=== PATIENT | female | born 1940 | race Caucasian/White ===

== ENCOUNTER 2021-05-31 16:08 | Emergency (ER) | payer MEDICARE, OTHER, SELFPAY ==
[2021-05-31 16:10] VITALS: BP 154/62; PULSE 67; RESP 18; TEMP 36.9; O2SAT 96; BMI 20.9
--- NOTE | 2021-05-31 16:12 | HMH.EDGENADL ---
ED Disposition Clinical Impression: Left shoulder pain Qualifiers: Chronicity: acute Qualified Code(s): M25.512 - Pain in left shoulder Disposition: Home, Self-Care Condition on Discharge: Good Additional Instructions: Ibuprofen/Tylenol as needed for aches and pains. Range of motion exercises and activity as tolerated with your left shoulder. Follow-up with PCP for physical therapy referral and possible local injection. Referrals: Kathleen Vaca [Primary Care Provider] - 3 days Time of Disposition: 16:38 - Critical Care Critical Care Time: No Attestation: On , the high probability of a clinically significant, sudden or life threatening deterioration of the following system(s) required my full and direct attention, intervention and personal management. The time I documented below is in addition to time spent performing reported procedures but includes the following listed in this critical care notation. Medical Decision Making - Medical Records Medical records reviewed: Yes: I reviewed the patient's medical records. - Efe Inquiry Pt receiving controlled substance: No Vital Signs: 05/31/21 16:10 Temperature 98.5 F Temperature Source Oral Pulse Rate [Left Radial] 67 Respiratory Rate 18 Blood Pressure [Right Arm] 154/62 H Blood Pressure Mean [Right Arm] 92 Blood Pressure Source [Right Arm] Automatic Cuff Blood Pressure Position [Right Arm] Sitting 02 Sat by Pulse Oximetry 96 Oxygen Delivery Method Room Air Medical Decision Narrative: 80yo F presents the emergency department as directed by her PCP for left shoulder pain. Patient is in no acute distress initial evaluation. Her physical exam is only remarkable for tenderness to palpate over her coracoid process. Differential diagnosis includes but not limited to: Tendinitis, ruptured biceps tendon, rotator cuff tear, labral tear, OCD of the humeral head. Patient has good range of motion. Occasionally she can reproduce symptoms with abduction of the shoulder and forward rotation. Discussed with the patient no concern that she broke a bone while trying to clean her window and therefore an x-ray would not be beneficial. Patient would likely benefit from a local steroid injection and physical therapy referral. Patient to follow-up with her PCP for treatment and referral. General Adult HPI - General Stated complaint: was raising arm it popped L shoulder Time Seen by Provider: 05/31/21 16:12 Mode of Arrival: Ambulatory - History of Present Illness HPI narrative: 80yo F RHD female presents emergency department on the direction of her PCP secondary to pain in her left shoulder. Patient reports she was washing her kitchen window when she went to raise the screen and had a sudden pop in her left shoulder that caused severe pain. Symptoms have improved upon arrival. She denies any fall. Denies any other trauma. Denies any previous shoulder surgery. Symptoms seem to be worse with abduction of her shoulder. - Related Data Allergies Allergy/AdvReac Type Severity Reaction Status Date / Time clarithromycin [From Biaxin] Allergy Mild TONGUE Unverified 07/18/17 15:00 FEELS STRANGE Clarithromycin Allergy Unknown Uncoded 07/18/17 15:00 From Penicillin V Potassium Allergy Unknown Uncoded 07/18/17 15:00 Penicillin Allergy Unknown Uncoded 07/18/17 15:00 [facility] History - Hepatitis A Screen Drug use history?: No Attestation statement:: This patient has been screened for Hepatitis A risk factors. I have reviewed the patient's past medical history: Yes - Social History Smoking Status: Never smoker ROS Obtained: Yes All systems reviewed & no additional complaints - Musculoskeletal Musculoskeletal: Reports as per HPI Physical Exam - General General appearance: alert, in no apparent distress - Head Head exam: atraumatic - Eye Eye exam: Present: normal appearance - ENT ENT exam: Present: normal exam - Respiratory Respiratory ex
[2021-05-31 16:52] VITALS: BP 132/78; PULSE 78; RESP 16; TEMP 36.6; O2SAT 98
== END 2021-05-31 16:54 | disposition home or self-care (01) ==
PROVIDERS: Emergency Provider Family Medicine; PCP Family Medicine
DX: M25.512 Pain in left shoulder (principal); X50.0XXA Overexertion from strenuous movement or load, initial encounter; Y92.019 Unspecified place in single-family (private) house as the place of occurrence of the external cause; Z88.0 Allergy status to penicillin
CPT/HCPCS: 99282

== ENCOUNTER → 2023-01-23 12:00 | Outpatient (CLI) | payer MEDICARE, OTHER, SELFPAY ==
[2023-01-23 17:45] LABS: Basophils % 0.9 % (0.1-2.0); Eosinophils # 0.1 K/mm3 (0.0-0.4); Eosinophils % 1.3 % (0.1-12.0); Hematocrit 40.1 % (37.0-47.0); Hemoglobin 12.6 g/dL (12.2-16.2); Lymphocytes # 1.3 K/mm3 (0.7-4.5); Lymphocytes % 28.3 % (10-50); Mean Corpuscular HGB Conc 31.4 g/dL (31.8-35.4); Mean Corpuscular Hemoglobin 28.9 pg (27.0-31.2); Mean Corpuscular Volume 92.2 fl (81-99); Mean Platelet Volume 9.2 fl (7.4-10.4); Monocytes # 0.4 K/mm3 (0.1-1.0); Monocytes % 7.8 % (1.7-9.3); Neutrophils # 2.9 K/mm3 (1.8-7.8); Neutrophils % 61.7 % (37.0-80.0); Platelet Count 244 K/mm3 (142-424); Red Blood Count 4.36 M/mm3 (4.20-5.40); Red Cell Distribution Width 13.3 % (11.5-17.5); White Blood Count 4.7 K/mm3 (4.8-10.8)
[2023-01-23 21:28] LABS: Chloride 96 mmol/L (98-107); Potassium 4.7 mmoL/L (3.5-5.1); Sodium 136 mmol/L (136-145)
[2023-01-23 21:31] LABS: Alanine Aminotransferase 22 U/L (12-78); Albumin Level 4.6 g/dl (3.5-5.0); Albumin/Globulin Ratio 1.8 (1.1-1.8); Alkaline Phosphatase 69 U/L (38-126); Anion Gap 14.7 mEq/L (5-15); Aspartate Amino Transferase 32 U/L (14-36); Bilirubin,Total 1.1 mg/dl (0.2-1.3); Blood Urea Nitrogen 13 mg/dl (7-17); Carbon Dioxide 30 mmol/L (22.0-30.0); Cholesterol 197 mg/dl (140-200); Estimated Glomerular Filt Rate 80 ml/min (>60); GFR (African American) 97 ML/MIN (>60); Globulin 2.6 g/dL (1.3-3.2); Total Protein,Serum 7.2 g/dl (6.3-8.2); Triglycerides 58 mg/dl (30-150); VLDL Cholesterol 12 mg/dL (0-40)
[2023-01-23 21:32] LABS: Calcium 9.6 mg/dl (8.4-10.2); Glucose 95 mg/dl (74-100)
[2023-01-23 21:39] LABS: HDL Cholesterol 101 mg/dl (40-60)
[2023-01-23 21:43] LABS: Direct LDL Cholesterol 65.15 mg/dL (100-129)
[2023-01-23 22:03] LABS: Thyroid Stimulating Hormone 0.89 uIU/mL (0.465-4.68)
== END ==
PROVIDERS: PCP Family Medicine; Visit Provider Family Medicine
DX: I10 Essential (primary) hypertension (principal); R01.1 Cardiac murmur, unspecified; Z00.00 Encounter for general adult medical examination without abnormal findings; Z79.899 Other long term (current) drug therapy
CPT/HCPCS: 80053; 80061; 84443; 85025

== ENCOUNTER → 2023-01-30 12:15 | Outpatient (CLI) | payer MEDICARE, OTHER, SELFPAY ==
--- NOTE | 2023-01-30 12:20 | XR_ITS ---
FINAL REPORT CLINICAL HISTORY: rolled left ankle, pain and swelling FINDINGS: LEFT ANKLE SERIES Three views of the left ankle were obtained. There is a nondisplaced fracture at the inferior tip of the lateral malleolus. There is a small tibiotalar joint effusion. There is lateral soft tissue swelling. IMPRESSION: Nondisplaced fracture at the inferior tip of the lateral malleolus. Small tibiotalar joint effusion. Reviewed, Interpreted and Dictated by Thomas Tavares III, MD Transcribed by Isac Solano Authenticated and [facility]
== END ==
PROVIDERS: PCP Family Medicine; Visit Provider Family Medicine
DX: M25.572 Pain in left ankle and joints of left foot; S99.912A Unspecified injury of left ankle, initial encounter
CPT/HCPCS: 73610

== ENCOUNTER 2023-02-02 15:21 | Outpatient (RCR) | payer MEDICARE, OTHER, SELFPAY | END 2023-02-02 16:32 | disposition home or self-care (01) | LOC: PT 15:21 | PROVIDERS: Visit Provider Orthopaedic Surgery | DX: S82.62XA Displaced fracture of lateral malleolus of left fibula, initial encounter for closed fracture (principal) | CPT/HCPCS: 97760 ==

== ENCOUNTER → 2023-02-23 12:35 | Outpatient (CLI) | payer MEDICARE, OTHER, SELFPAY ==
--- NOTE | 2023-02-23 12:42 | XR_ITS ---
FINAL REPORT CLINICAL HISTORY: lt ankle fx COMPARISON: 01/30/2023 FINDINGS: Three views show redemonstration of transverse fracture of the lateral malleolus. No evidence of fracture healing at this time. Displacement is stable. There is no widening of the ankle mortise. The joint spaces appear normal. IMPRESSION: Stable lateral malleolus fracture without evidence of healing at this time. Reviewed, Interpreted and Dictated by Ryley Mendenhall MD Transcribed by Crystal Pierre Authenticated and [facility]
== END ==
PROVIDERS: PCP Family Medicine; Visit Provider Orthopaedic Surgery
DX: S82.62XA Displaced fracture of lateral malleolus of left fibula, initial encounter for closed fracture (principal); M25.572 Pain in left ankle and joints of left foot
CPT/HCPCS: 73610

== ENCOUNTER → 2023-03-23 09:14 | Outpatient (CLI) | payer MEDICARE, OTHER, SELFPAY ==
--- NOTE | 2023-03-23 09:21 | XR_ITS ---
FINAL REPORT CLINICAL HISTORY: lt ankle pain, follow-up fracture COMPARISON: 02/23/2023 FINDINGS: LEFT ANKLE Three views demonstrate ossific density inferior to the lateral malleolus probably related to old avulsion fracture. No callus formation is seen at this location. The mortise is intact. The visualized joint spaces are normally aligned. The soft tissues are unremarkable. IMPRESSION: Redemonstration of fragment inferior to the lateral malleolus. Reviewed, Interpreted and Dictated by Waqar Peoples MD Transcribed by Crystal Pierre Authenticated and [facility]
== END ==
PROVIDERS: PCP Family Medicine; Visit Provider Orthopaedic Surgery
DX: M25.572 Pain in left ankle and joints of left foot (principal); S99.912A Unspecified injury of left ankle, initial encounter
CPT/HCPCS: 73610

== ENCOUNTER → 2023-07-06 16:37 | Outpatient (CLI) | payer MEDICARE, OTHER, SELFPAY ==
[2023-07-06 16:45] LABS: Alanine Aminotransferase 21 U/L (12-78); Albumin Level 4.4 g/dl (3.5-5.0); Albumin/Globulin Ratio 1.7 (1.1-1.8); Alkaline Phosphatase 66 U/L (38-126); Anion Gap 10.4 mEq/L (5-15); Aspartate Amino Transferase 38 U/L (14-36); Bilirubin,Total 0.8 mg/dl (0.2-1.3); Blood Urea Nitrogen 10 mg/dl (7-17); Calcium 9.1 mg/dl (8.4-10.2); Carbon Dioxide 30 mmol/L (22.0-30.0); Chloride 100 mmol/L (98-107); Chol/HDL Ratio 1.7 (1-3.5); Cholesterol 186 mg/dl (140-200); Estimated Glomerular Filt Rate 80 ml/min (>60); GFR (African American) 97 ML/MIN (>60); Globulin 2.6 g/dL (1.3-3.2); Glucose 96 mg/dl (74-100); HDL Cholesterol 107 mg/dl (40-60); Potassium 4.4 mmoL/L (3.5-5.1); Sodium 136 mmol/L (136-145); Triglycerides 65 mg/dl (30-150); VLDL Cholesterol 13 mg/dL (0-40)
[2023-07-06 16:48] LABS: Basophils % 0.3 % (0.1-2.0); Eosinophils # 0.1 K/mm3 (0.0-0.4); Eosinophils % 2.1 % (0.1-12.0); Hematocrit 38.9 % (37.0-47.0); Hemoglobin 12.5 g/dL (12.2-16.2); Lymphocytes # 1.6 K/mm3 (0.7-4.5); Lymphocytes % 33.5 % (10-50); Mean Corpuscular HGB Conc 32.1 g/dL (31.8-35.4); Mean Corpuscular Hemoglobin 30.9 pg (27.0-31.2); Mean Corpuscular Volume 96.3 fl (81-99); Mean Platelet Volume 8.9 fl (7.4-10.4); Monocytes # 0.3 K/mm3 (0.1-1.0); Monocytes % 7.2 % (1.7-9.3); Neutrophils # 2.7 K/mm3 (1.8-7.8); Neutrophils % 56.8 % (37.0-80.0); Platelet Count 228 K/mm3 (142-424); Red Blood Count 4.04 M/mm3 (4.20-5.40); Red Cell Distribution Width 13.2 % (11.5-17.5); White Blood Count 4.8 K/mm3 (4.8-10.8)
[2023-07-06 16:56] LABS: Direct LDL Cholesterol 68.06 mg/dL (100-129)
== END ==
PROVIDERS: PCP Family Medicine; Visit Provider Family Medicine
DX: I10 Essential (primary) hypertension (principal); Z79.899 Other long term (current) drug therapy
CPT/HCPCS: 80053; 80061; 84443; 85025

== ENCOUNTER 2023-10-25 18:56 | Outpatient (CLI) | payer MEDICARE, OTHER, SELFPAY | END 2023-10-25 23:59 | PROVIDERS: PCP Family Medicine; Visit Provider Family Medicine | DX: R39.9 Unspecified symptoms and signs involving the genitourinary system (principal); B96.4 Proteus (mirabilis) (morganii) as the cause of diseases classified elsewhere | CPT/HCPCS: 87086 ==

== ENCOUNTER 2024-01-17 09:05 | Outpatient (CLI) | payer MEDICARE, OTHER, SELFPAY ==
[2024-01-17 16:48] LABS: Basophils # 0.1 K/mm3 (0-0.2); Basophils % 1.2 % (0.1-2.0); Eosinophils # 0.1 K/mm3 (0.0-0.4); Eosinophils % 2.2 % (0.1-12.0); Hematocrit 38.2 % (37.0-47.0); Hemoglobin 12.1 g/dL (12.2-16.2); Lymphocytes # 1.5 K/mm3 (0.7-4.5); Lymphocytes % 32.4 % (10-50); Mean Corpuscular HGB Conc 31.6 g/dL (31.8-35.4); Mean Corpuscular Hemoglobin 30.1 pg (27.0-31.2); Mean Corpuscular Volume 95.3 fl (81-99); Mean Platelet Volume 9.2 fl (7.4-10.4); Monocytes # 0.4 K/mm3 (0.1-1.0); Monocytes % 8.7 % (1.7-9.3); Neutrophils # 2.5 K/mm3 (1.8-7.8); Neutrophils % 55.6 % (37.0-80.0); Platelet Count 259 K/mm3 (142-424); Red Blood Count 4.01 M/mm3 (4.20-5.40); Red Cell Distribution Width 13.2 % (11.5-17.5); White Blood Count 4.5 K/mm3 (4.8-10.8)
[2024-01-17 17:18] LABS: Alanine Aminotransferase 16 U/L (12-78); Albumin Level 4.4 g/dl (3.5-5.0); Albumin/Globulin Ratio 1.7 (1.1-1.8); Alkaline Phosphatase 64 U/L (38-126); Aspartate Amino Transferase 27 U/L (14-36); Bilirubin,Total 1.1 mg/dl (0.2-1.3); Blood Urea Nitrogen 11 mg/dl (7-17); Calcium 9.7 mg/dl (8.4-10.2); Carbon Dioxide 29 mmol/L (22.0-30.0); Chloride 99 mmol/L (98-107); Chol/HDL Ratio 2.3 (1-3.5); Cholesterol 216 mg/dl (140-200); Estimated Glomerular Filt Rate 69 ml/min (>60); GFR (African American) 83 ML/MIN (>60); Globulin 2.6 g/dL (1.3-3.2); Glucose 92 mg/dl (74-100); HDL Cholesterol 95 mg/dl (40-60); Sodium 137 mmol/L (136-145); Triglycerides 64 mg/dl (30-150); VLDL Cholesterol 13 mg/dL (0-40)
[2024-01-17 17:29] LABS: Direct LDL Cholesterol 84.08 mg/dL (100-129)
[2024-01-17 17:47] LABS: Thyroid Stimulating Hormone 1.23 uIU/mL (0.465-4.68)
== END 2024-01-17 23:59 | disposition home or self-care (01) ==
LOC: LAB.DROPOF 01-18 10:12
PROVIDERS: PCP Family Medicine; Visit Provider Family Medicine
DX: E78.5 Hyperlipidemia, unspecified (principal); I10 Essential (primary) hypertension
CPT/HCPCS: 80053; 80061; 84443; 85025

== ENCOUNTER 2024-04-19 16:34 | Outpatient (CLI) | payer MEDICARE, OTHER, SELFPAY | END 2024-04-19 23:59 | disposition home or self-care (01) | LOC: LAB.DROPOF 16:35 | PROVIDERS: PCP Nurse Practitioner Family; Visit Provider Nurse Practitioner Family | DX: R39.9 Unspecified symptoms and signs involving the genitourinary system (principal); N39.0 Urinary tract infection, site not specified | CPT/HCPCS: 87086 ==

== ENCOUNTER 2024-07-05 10:24 | Outpatient (CLI) | payer MEDICARE, OTHER, SELFPAY | END 2024-07-05 23:59 | disposition home or self-care (01) | LOC: LAB.DROPOF 07-07 09:31 | PROVIDERS: PCP Family Medicine; Visit Provider Family Medicine | DX: R39.9 Unspecified symptoms and signs involving the genitourinary system (principal) | CPT/HCPCS: 87086; 87088; 87186 ==

== ENCOUNTER 2024-07-22 09:53 | Outpatient (CLI) | payer MEDICARE, OTHER, SELFPAY ==
[2024-07-22 16:50] LABS: White Blood Count 8.8 K/mm3 (4.8-10.8)
[2024-07-22 16:51] LABS: Basophils # 0.1 K/mm3 (0-0.2); Basophils % 0.7 % (0.1-2.0); Eosinophils # 0.2 K/mm3 (0.0-0.4); Eosinophils % 2.5 % (0.1-12.0); Hematocrit 35.4 % (37.0-47.0); Hemoglobin 10.9 g/dL (12.2-16.2); Lymphocytes % 10.8 % (10-50); Mean Corpuscular HGB Conc 30.8 g/dL (31.8-35.4); Mean Corpuscular Hemoglobin 28.7 pg (27.0-31.2); Mean Corpuscular Volume 93.2 fl (81-99); Mean Platelet Volume 9.8 fl (7.4-10.4); Monocytes # 0.9 K/mm3 (0.1-1.0); Neutrophils # 6.7 K/mm3 (1.8-7.8); Neutrophils % 75.9 % (37.0-80.0); Platelet Count 338 K/mm3 (142-424); Red Cell Distribution Width 14.2 % (11.5-17.5)
[2024-07-22 17:08] LABS: Alanine Aminotransferase 22 U/L (12-78); Albumin Level 4.7 g/dl (3.5-5.0); Alkaline Phosphatase 95 U/L (38-126); Anion Gap 14.2 mEq/L (5-15); Aspartate Amino Transferase 39 U/L (14-36); Bilirubin,Total 0.8 mg/dl (0.2-1.3); Blood Urea Nitrogen 16 mg/dl (7-17); Calcium 10.1 mg/dl (8.4-10.2); Carbon Dioxide 29 mmol/L (22.0-30.0); Chloride 97 mmol/L (98-107); Cholesterol 200 mg/dl (140-200); Estimated Glomerular Filt Rate 80 ml/min (>60); GFR (African American) 96 ML/MIN (>60); Globulin 2.3 g/dL (1.3-3.2); Glucose 84 mg/dl (74-100); Potassium 5.2 mmoL/L (3.5-5.1); Sodium 135 mmol/L (136-145); Triglycerides 40 mg/dl (30-150); VLDL Cholesterol 8 mg/dL (0-40)
[2024-07-22 17:15] LABS: HDL Cholesterol 98 mg/dl (40-60)
[2024-07-22 17:18] LABS: Direct LDL Cholesterol 77.27 mg/dL (100-129)
[2024-07-22 18:35] LABS: HIV Combo NEGATIVE (Negative)
[2024-07-23 08:12] LABS: HCV Ab Non Reactive (Non Reactive)
== END 2024-07-22 23:59 | disposition home or self-care (01) ==
LOC: LAB.DROPOF 07-23 09:54
PROVIDERS: PCP Family Medicine; Visit Provider Family Medicine
DX: Z11.4 Encounter for screening for human immunodeficiency virus [HIV] (principal); Z11.59 Encounter for screening for other viral diseases; I10 Essential (primary) hypertension; E78.5 Hyperlipidemia, unspecified
CPT/HCPCS: 80053; 80061; 85025; 86803; 87389

== ENCOUNTER 2024-08-16 08:54 | Outpatient (CLI) | payer MEDICARE, OTHER, SELFPAY | END 2024-08-16 23:59 | disposition home or self-care (01) | LOC: LAB.DROPOF 08-19 08:54 | PROVIDERS: PCP Nurse Practitioner Family; Visit Provider Nurse Practitioner Family | DX: R39.9 Unspecified symptoms and signs involving the genitourinary system (principal) | CPT/HCPCS: 87086 ==

== ENCOUNTER 2025-01-07 08:30 | Outpatient (CLI) | payer MEDICARE, OTHER, SELFPAY ==
--- OUTSIDE RECORDS SUMMARY | 2024-11-14 07:17 | XMS_ITS | Encounter Summary ---
Author Organization [facility] [employer] Address [address] [place] [address] Care Team Providers Care Gold Plater Name Role Phone Ronald Ghotra MD Primary Care Provider [phone] Reason for Visit * Auth/Cert (Routine) Specialty Diagnoses / Procedures Referred By Contac t Referred To Contact Diagnoses Combined forms of age-related cataract of left eye SEE PRIMARY DX Procedures CT XCAPSL CTRC RMVL INSJ IO LENS PROSTH W/O ECP EXTRACTION, CATARACT, WITH IOL INSERTION Roslyn Stone MD [email or web address] [place] [address] Phone: tel: fax: Referral ID Status Reason Start Date Expiration Date Visits Re quested Visits Authorized [id number] 10/28/2024 1 1 Encounter Details Date Type Department Care Team (Late st Contact Info) Description 11/14/2024 7:17 AM EDT - 11/14/2024 9:11 AM EDT Hospital Encounter [facility] Operating Room [address] [place] [phone] Roslyn Stone MD [address] [place] [address] Discharge Disposition: Home or Self Care Social History Tobacco Use Types Packs/Day Years Used Date Smoking Tobacco: Never Smokeless Tobacco: Never Tobacco Cessation:Counseling Given: Not Answered Alcohol Use Standard Drinks/Week Comments Never 0 (1 standard drink = 0.6 oz pur e alcohol) Comments No Sex and Gender Information Value Date Recorded Sex Assigned at Not on file Legal Sex Female 7:15 PM CDT Gender Identity Not on file Sexual Orientation Not on file documented as of this encounter Last Filed Vital Signs Vital Sign Reading Time Taken Comments Blood Pressure 134/84 11/14/2024 9:09 AM EDT Pulse 66 11/14/2024 9:09 AM EDT Temperature 36.5 C (97.7 F) 11/14/2024 9:09 AM EDT Respiratory Rate 12 11/14/2024 9:09 AM EDT Oxygen Saturation 99% 11/14/2024 9:09 AM EDT Inhaled Oxygen Concentration - - Weight 52.2 kg (115 lb) 11/14/2024 7:57 AM EDT Height 167.6 cm (5' 6 ) 11/14/2024 7:57 AM EDT Body Mass Index 18.56 11/14/2024 7:57 AM EDT documented in this encounter Medications at Time of Discharge aspirin 81 MG EC tablet Take 1 tablet (81 mg total) by mouth once a week at bedtime. calcium carbonate-vitamin D3 (calcium-vitamin D) 1,250 mg (500 mg) - 200 unit per tablet Take 1 tablet by mouth 2 (two) times daily. cetirizine (ZyrTEC) 5 MG chewable tablet ferrous gluconate (FERGON) 324 MG tablet Take 1 tablet (324 mg total) by mouth daily with breakfast. gabapentin (NEURONTIN) 300 MG capsule Take 1 capsule (300 mg total) by mouth. 10/05/2024 lisinopriL (ZESTRIL) 10 MG tablet Take 1 tablet (10 mg total) by mouth daily. 08/24/2024 meloxicam (MOBIC) 15 MG tablet Take 1 tablet (15 mg total) by mouth daily. 10/07/2024 omeprazole (PriLOSEC) 20 MG capsule Take 1 capsule (20 mg total) by mouth 2 (two) times daily. 08/24/2024 pravastatin (PRAVACHOL) 10 MG tablet Take 1 tablet (10 mg total) by mouth nightly. 08/24/2024 documented as of this encounter H&P Notes * Roslyn Stone MD - 11/14/2024 7:39 AM EDT H&P reviewed. The patient was examined and there are no changes to the H&P. Source Note - Roslyn Stone MD - 11/07/2024 2:03 PM EDT documented in this encounter OR Notes * Op Note - Roslyn Stone MD - 11/14/2024 8:48 AM EDT Date: 11/14/24 Patient Name: Nithya Wynn : 1940 Procedures: Procedure(s): PHACO IOL OS PC 22.00 Indications: Nithya Wynn is an 84 y.o. female presents with SEE PRIMARY DX. The risks, benefits, and alternatives of the above procedure were discussed and the patient has elected to proceed. Surgeons: * Roslyn Stone MD - Primary Findings: SEE MEDIA Anesthesia: Monitor Anesthesia Care Estimated Blood Loss: NONE Total IV Fluids: See anesthesia note Complications: SEE NOTE * Disposition: Post Op to Home Condition: Stable Roslyn Stone MD documented in this encounter Plan of Treatment Not on file documented as of this encounter Procedures Procedure Name Priority Date/Time Associated Diagnosis Comments CT XCAPSL CTRC RMVL INSJ IO LENS PROSTH W/O ECP 11/14/2024 8:48 AM EDT Combined forms of age-related cataract of left eye Case Notes [id number] documented in this encounter Visit Diagnoses Diagnosis HTN (hypertension) Unspecified essential hypertension Gastroesophageal reflux disease Esophageal reflux documented in this encounter Administered Medications Inactive Administered Medications - up to 3 most recent administrations Medication Order MAR Action Action Date Dose Rate Site ofloxacin (OCUFLOX) ophthalmic solution 0.3% 1 drop Every 5 min, left eye, First dose on Mon11/14/24 at 0800, For 3 doses, Patient Supplied, Pre-op Given 11/14/2024 8:22 AM EDT 1 drop Given 11/14/2024 8:15 AM EDT 1 drop Given 11/14/2024 8:04 AM EDT 1 drop phenylephrine-tropicamide 2.5%-1% (MYDCOMBI) ophthalmic solution 1 drop Every 5 min, ophthalmic, First dose on Ashley 11/14/24 at 0800, For 3 doses, Apply in *LEFT* Eye Dispose of bottle within 4 hours of first dose., Pre-op Given 11/14/2024 8:23 AM EDT 1 drop Given 11/14/2024 8:15 AM EDT 1 drop Given 11/14/2024 8:04 AM EDT 1 drop povidone-iodine 5 % ophthalmic solution left eye, Once, On Ashley 11/14/24 at 0800, For 1 dose, 1 drop in operative eye On-call to OR (immediately before leaving pre-op area -- after tetracaine), Pre-op Given 11/14/2024 8:43 AM EDT tetracaine (PF) ophthalmic drop 0.5% 1 drop Every hour, left eye, First dose on Ashley 11/14/24 at 0800, For 2 doses, Instill drop prior to all other eye drops; Instill an additional drop on-call to OR (immediately before leaving pre-op area), Pre-op Given 11/14/2024 8:42 AM EDT 1 drop Given 11/14/2024 8:05 AM EDT 1 drop documented in this encounter Active and Recently Administered Medications Times are shown in EDT. Scheduled Medication Order 11/12/2024 11/13/2024 11/14/2024 BSS with gentamicin, epinephrine and vancomycin ophthalmic irrigation (COMPLETED) ophthalmic, Once, On Ashley 11/14/24 at 0800, For 1 dose, In the operative eye as per MD instructions during procedure, Intra-op 0800 (Due)0901 (Give n - Provider: Roslyn Stone MD) gentamicin (GARAMYCIN) ophthalmic solution 0.3%(Linked Group 1) 1 drop Once, left eye, On Ashley 11/14/24 at 0800, For 1 dose, Immediately after procedure If patient has ALLERGY to fluoroquinolones (e.g. levofloxacin, ciprofloxacin, ofloxacin, etc.) Patient Supplied, Intra-op 0800 (Due) lidocaine PF (XYLOCAINE) 40 mg/mL (4 %) injection 40 mg (COMPLETED) 40 mg Once (1 mL), other - see admin instructions/comments, On Ashley 11/14/24 at 0800, For 1 dose, In the operative eye as per MD instructions during procedure, Intra-op 0800 (Due)0852 (Give n - Provider: Daisy Shepherd, DANDRE) wsaaoeyse-kblmlibihanr-AXR(PF) 1-1.5 % syrg 1 mL (COMPLETED) 1 mL Once, ophthalmic, On Ashley 11/14/24 at 0800, For 1 dose, In the operative eye as per MD instructions during procedure, Intra-op 0800 (Due)0902 (Give n - Provider: Roslyn Stone MD) ofloxacin (OCUFLOX) ophthalmic solution 0.3%(Linked Group 1) 1 drop Once, left eye, On Ashley 11/14/24 at 0800, For 1 dose, Immediately after procedure Patient Supplied, Intra-op 08 (Due) ofloxacin (OCUFLOX) ophthalmic solution 0.3%(Linked Group 1) 1 drop Once, left eye, On Ashley 11/14/24 at 0800, For 1 dose, Immediately after procedure Hospital Supply - use only if patient own supply unavailable, Intra-op 08 (Due) ofloxacin (OCUFLOX) ophthalmic solution 0.3% (COMPLETED)(Linked Group 2) 1 drop Every 5 min, left eye, First dose on Ashley 11/14/24 at 0800, For 3 doses, Patient Supplied, Pre-op 0804 (Given - Provid er: Jordy Velarde RN)0815 (Given - Provider: Jordy Velarde RN)08 (Given - Provider: Jordy Velarde RN) phenylephrine-tropicamide 2.5%-1% (MYDCOMBI) ophthalmic solution (COMPLETED) 1 drop Every 5 min, ophthalmic, First dose on Ashley 11/14/24 at 0800, For 3 doses, Apply in *LEFT* Eye Dispose of bottle within 4 hours of first dose., Pre-op 0804 (Given - Provid er: Jordy Velarde RN)0815 (Given - Provider: Jordy Velarde RN)0823 (Given - Provider: Jordy Velarde RN) povidone-iodine 5 % ophthalmic solution (COMPLETED) left eye, Once, On Ashley 11/14/24 at 0800, For 1 dose, 1 drop in operative eye On-call to OR (immediately before leaving pre-op area -- after tetracaine), Pre-op 0843 (Given - Provid er: Gabby Whitfield RN) tetracaine (PF) ophthalmic drop 0.5% (COMPLETED) 1 drop Every hour, left eye, First dose on Ashley 11/14/24 at 0800, For 2 doses, Instill drop prior to all other eye drops; Instill an additional drop on-call to OR (immediately before leaving pre-op area), Pre-op 0805 (Given - Provid er: Jordy Velarde RN)0842 (Given - Provider: Gabby Whitfield RN) tobramycin (TOBREX) 0.3 % ophthalmic solution 1 drop(Linked Group 1) 1 drop Once, left eye, On Ashley 11/14/24 at 0800, For 1 dose, Immediately after procedure If patient has ALLERGY to fluoroquinolones (e.g. levofloxacin, ciprofloxacin, ofloxacin, etc.) Hospital Supply - use only if patient own supply unavailable, Intra-op 0800 (Due) Linked Groups Order Group 1: ofloxacin (OCUFLOX) ophthalmic solution 0.3%Jump to med 1 drop Once, left eye, On Ashley 11/14/24 at 0800, For 1 dose, Immediately after procedure Patient Supplied, Intra-op Or ofloxacin (OCUFLOX) ophthalmic solution 0.3%Jump to med 1 drop Once, left eye, On Ashley 11/14/24 at 0800, For 1 dose, Immediately after procedure Hospital Supply - use only if patient own supply unavailable, Intra-op Or gentamicin (GARAMYCIN) ophthalmic solution 0.3%Jump to med 1 drop Once, left eye, On Ashley 11/14/24 at 0800, For 1 dose, Immediately after procedure If patient has ALLERGY to fluoroquinolones (e.g. levofloxacin, ciprofloxacin, ofloxacin, etc.) Patient Supplied, Intra-op Or tobramycin (TOBREX) 0.3 % ophthalmic solution 1 dropJump to med 1 drop Once, left eye, On Ashley 11/14/24 at 0800, For 1 dose, Immediately after procedure If patient has ALLERGY to fluoroquinolones (e.g. levofloxacin, ciprofloxacin, ofloxacin, etc.) Hospital Supply - use only if patient own supply unavailable, Intra-op Group 2: ofloxacin (OCUFLOX) ophthalmic solution 0.3% (COMPLETED)Jump to med 1 drop Every 5 min, left eye, First dose on Ashley 11/14/24 at 0800, For 3 doses, Patient Supplied, Pre-op Or ofloxacin (OCUFLOX) ophthalmic solution 0.3% (COMPLETED) 1 drop Every 5 min, left eye, First dose on Ashley 11/14/24 at 0800, For 3 doses, Hospital Supply - use only if patient own supply unavailable, Pre-op Or gentamicin (GARAMYCIN) ophthalmic solution 0.3% (COMPLETED) 1 drop Every 5 min, left eye, First dose on Ashley 11/14/24 at 0800, For 3 doses, If patient has ALLERGY to fluoroquinolones (e.g. levofloxacin, ciprofloxacin, ofloxacin, etc.) Patient Supplied, Pre-op Or tobramycin (TOBREX) 0.3 % ophthalmic solution 1 drop (COMPLETED) 1 drop Every 5 min, left eye, First dose on Ashley 11/14/24 at 0800, For 3 doses, If patient has ALLERGY to fluoroquinolones (e.g. levofloxacin, ciprofloxacin, ofloxacin, etc.) Hospital Supply - use only if patient own supply unavailable, Pre-op documented in this encounter Care Teams Gold Plater Relationship Specialty Start Date End Date Ronald Ghotra MD [address] [place] [id number] PCP - General Family Medicine 11/06/24 documented as of this encounter
--- OUTSIDE RECORDS SUMMARY | 2024-11-14 08:48 | XMS_ITS | Encounter Summary ---
Author Organization [employer] Address [address] [place] [address] Care Team Providers Care Passenger Service Supervisor Name Role Phone Ronald Ghotra MD Primary Care Provider [phone]- [phone] Reason for Visit * Auth/Cert (Routine) Specialty Diagnoses / Procedures Referred By Contac t Referred To Contact Diagnoses Combined forms of age-related cataract of left eye SEE PRIMARY DX Procedures [place] XCAPSL CTRC RMVL INSJ IO LENS PROSTH W/O ECP EXTRACTION, CATARACT, WITH IOL INSERTION Roslyn Stone MD [address] [facility] [address] [place] [phone] Phone: tel: fax: Referral ID Status Reason Start Date Expiration Date Visits Re quested Visits Authorized [id number] 10/28/2024 1 1 Encounter Details Date Type Department Care Team (Late st Contact Info) Description 11/14/2024 8:48 AM EDT Anesthesia Event [facility] Operating Room [address] [place] [address] Rebeca Mera CRNA [address] [place], [place] [id number] Jayme Kevin DO [address] [place] [address] Anesthesia Record Procedure Summary Procedure Name Responsible Anesthesiologist Anesthesia Start Time Anesthesia Stop Time PHACO IOL OS PC 22.00 (Left: Eye) Rebeca Mera CRNA 11/14/24 0848 11/14/24 0909 Events Date Time Event Comment 11/14/2024 0813 0848 An Start Patient identif ied and chart reviewed. 0853 An Start Data Anesthesia mac rocio and monitors checked. 0908 an stop data 0908 Handoff to Receiving I compl eted my handoff to the receiving clinician during which we: 1. Identified the patient. 2. Identified the responsible provider. 3. Reviewed the pertinent medical history. 4. Discussed the surgical course. 5. Reviewed intra-op anesthesia management and issues during anesthesia. 6. Set expectations for post-procedure period. 7. Allowed opportunity for questions and acknowledgement of understanding. 0909 An Stop Meds Name Total midazolam (VERSED) injection 1 mg/ mL 2 mg * Agents Name O2 N2O Air * Blood No blood administrations on file. Lines, Drains, and Airways Type Details Placement Removal Wound 11/14/24; 0830; Inci nick; Eye; Left 11/14/24 0830 by Francoise Rao RN Peripheral IV Placement Date: 10/29 02/21; Placement Time: 0820; Size: 22 G; Orientation: Posterior, Right; Location: Forearm; Site Prep: Chlorhexidine ; Insertion attempts: 5+; Securement Method: Taped; Removal Date: 11/14/24; Removal Time: 0910; Removal Reason: Per order 11/14/24 0820 by Chela Pierre RN 11/14/24 0910 by Catherine Jones RN documented in this encounter Social History Tobacco Use Types Packs/Day Years Used Date Smoking Tobacco: Never Smokeless Tobacco: Never Alcohol Use Standard Drinks/Week Comments Never 0 (1 standard drink = 0.6 oz pur e alcohol) Comments No Sex and Gender Information Value Date Recorded Sex Assigned at Not on file Legal Sex Female 7:15 PM CDT Gender Identity Not on file Sexual Orientation Not on file documented as of this encounter OR Notes * Anesthesia Postprocedure Evaluation - Rebeca Mera CRNA - 11/14/2024 9:08 AM EDT Patient: Nithya Wynn Procedure Summary Date: 11/14/24 Room / Location: [facility] OPERATING ROOM Anesthesia Start: 48 Anesthesia Stop: Procedure: PHACO IOL OS PC 22.00 (Left: Eye) Diagnosis: Combined forms of age-related cataract of left eye (SEE PRIMARY DX) Surgeons: Roslyn Stone MD Responsible Provider: Rebeca Mera CRNA Anesthesia Type: MAC ASA Status: 3 Anesthesia Type: MAC Vitals Value Taken Time BP 137/62 11/14/24 0908 Temp 98 11/14/24 0908 Pulse 66 11/14/24 0908 Resp 18 11/14/24 0908 SpO2 99 11/14/24 0908 Ht 1.676 m (5' 6 ) Wt 52.2 kg (115 lb) BMI 18.56 kg/m?? Anesthesia Post Evaluation Patient location during evaluation: bedside Patient participation: complete - patient participated Level of consciousness: awake and alert Pain score: 0 Pain management: adequate Airway patency: patent Cardiovascular status: acceptable and stable Respiratory status: spontaneous ventilation, acceptable and room air Hydration status: acceptable Color: Black Diamond Activity: Moves 4 extremities Inotropes/Vasopressors: N/A No notable events documented. Rebeca Mera CRNA 11/14/2024 9:08 AM EDT * Anesthesia Preprocedure Evaluation - Jayme Kevin DO - 11/14/2024 8:09 AM EDT Anesthesia Pre Evaluation Ms. Nithay Wynn is a 84 y.o. female being evaluated for the following: Date/Time: 11/14/24925 Procedure: PHACO IOL OS PC 22.00 (Left) Location: [facility] OPERATING ROOM Surgeons: Roslyn Stone MD Relevant Problems ANESTHESIA (within normal limits) CARDIOVASCULAR (+) HTN (hypertension) ENDOCRINE (within normal limits) GASTROINTESTINAL (+) Gastroesophageal reflux disease /RENAL (within normal limits) NEURO/PSYCH Spinal stenosis C-Spine OA RESPIRATORY SYSTEM (within normal limits) Clinical information reviewed: NPO Status Date of last liquid: 11/13/24 Time of last liquid: 2199 Date of last solid: 11/13/24 Time of last solid: 2199 Physical Exam Airway Mallampati: II Neck ROM: limited Cardiovascular - normal exam Dental - normal exam Pulmonary - normal exam Abdominal Anesthesia Plan ASA 3 Planned anesthetic: MAC Anesthesia Plan Factors- The patient is not a current smoker. Induction: intravenous Informed Consent- Anesthetic plan and risks discussed with patient. Plan discussed with D[employer]ICS AX CONSULTANT. documented in this encounter Plan of Treatment Not on file documented as of this encounter Visit Diagnoses Not on filedocumented in this encounter Administered Medications Inactive Administered Medications - up to 3 most recent administrations Medication Order MAR Action Action Date Dose Rate Site midazolam (VERSED) injection As needed, intravenous, Starting on Ashley 11/14/24 at 0853, Anesthesia Intra-op Given 11/14/2024 8:53 AM EDT 2 mg documented in this encounter Care Teams Passenger Service Supervisor Relationship Specialty Start Date End Date Ronald Ghotra MD [address] [place], [place] [id number] PCP - General Family Medicine 11/06/24 documented as of this encounter
--- OUTSIDE RECORDS SUMMARY | 2024-11-14 09:26 | XMS_ITS | Encounter Summary ---
Author Organization [facility] Address [address] [place] [address] Care Team Providers Care Job Press Feeder Name Role Phone Ronald Ghotra MD Primary Care Provider [phone] Reason for Visit * Auth/Cert (Routine) Specialty Diagnoses / Procedures Referred By Contac t Referred To Contact Diagnoses Combined forms of age-related cataract of left eye SEE PRIMARY DX Procedures RI XCAPSL CTRC RMVL INSJ IO LENS PROSTH W/O ECP EXTRACTION, CATARACT, WITH IOL INSERTION Roslyn Stone MD [address] [place] [address] Phone: tel: fax: Referral ID Status Reason Start Date Expiration Date Visits Re quested Visits Authorized [id number] 10/28/2024 1 1 Encounter Details Date Type Department Care Team (Late st Contact Info) Description 11/14/2024 9:26 AM EDT - 11/14/2024 9:55 AM EDT Surgery [facility] Operating Room [address] [place] [id number] Roslyn Stone MD [address] [place] [address] [facility] 22.00 Social History Tobacco Use Types Packs/Day Years [...] Procedure Name Priority Date/Time Associated Diagnosis Comments RI XCAPSL CTRC RMVL INSJ IO LENS PROSTH W/O ECP 11/14/2024 8:48 AM EDT Combined forms of age-related cataract of left eye Case Notes 0730 documented in this encounter Visit Diagnoses Diagnosis HTN (hypertension) Unspecified essential hypertension Gastroesophageal reflux disease Esophageal reflux Combined forms of age-related cataract of left eye documented in this encounter Administered Medications Inactive Administered Medications - up to 3 most recent administrations Medication Order MAR Action Action Date Dose Rate Site BSS with gentamicin, epinephrine and vancomycin ophthalmic irrigation ophthalmic, Once, On Ashley 11/14/24 at 0800, For 1 dose, In the operative eye as per MD instructions during procedure, Intra-op Given 11/14/2024 9:01 AM EDT 500 mLs Left Eye lidocaine PF (XYLOCAINE) 40 mg/mL (4 %) injection 40 mg 40 mg Once (1 mL), other - see admin instructions/comments, On Ashley 11/14/24 at 0800, For 1 dose, In the operative eye as per MD instructions during procedure, Intra-op Given 11/14/2024 8:52 AM EDT 1 mL Left Eye vfsryzrda-hvwfeavbynjc-UMI(PF ) 1-1.5 % syrg 1 mL 1 mL Once, ophthalmic, On Ashley 11/14/24 at 0800, For 1 dose, In the operative eye as per MD instructions during procedure, Intra-op Given 11/14/2024 9:02 AM EDT 1 mL Left Eye ofloxacin (OCUFLOX) ophthalmic solution 0.3% 1 drop [...] 0800 (Due)0852 (Give n - Provider: Daisy Shepherd RN) jjplowycr-mqfnwllaggpc-ULG(PF) 1-1.5 % syrg 1 mL (COMPLETED) 1 [...] dose, Immediately after procedure Patient Supplied, Intra-op 0800 (Due) ofloxacin (OCUFLOX) ophthalmic solution 0.3%(Linked Group 1) 1 drop Once, left eye, On Ashley 11/14/24 at 0800, For 1 dose, Immediately after procedure Hospital Supply - use only if patient own supply unavailable, Intra-op 0800 (Due) ofloxacin (OCUFLOX) ophthalmic solution 0.3% (COMPLETED)(Linked [...] Jordy Velarde RN)0815 (Given - Provider: Jordy eVlarde RN)08 (Given - Provider: Jordy Velarde RN) povidone-iodine [...] Pre-op documented in this encounter Care Teams Job Press Feeder Relationship Specialty Start Date End Date Ronald Ghotra MD [address] [place] [address] PCP - General Family Medicine 11/06/24 documented as of this encounter
[2025-01-07 17:09] LABS: Basophils # 0.1 K/mm3 (0-0.2); Basophils % 0.9 % (0.1-2.0); Eosinophils # 0.2 Kmm3 (0.0-0.4); Eosinophils % 2.7 % (0.1-12.0); Hematocrit 39.7 % (37.0-47.0); Hemoglobin 12.5 g/dL (12.2-16.2); Immature Granulocytes # 0.02 10^3uL; Immature Granulocytes % 0.4 %; Lymphocytes # 1.8 K/mm3 (0.7-4.5); Lymphocytes % 32.5 % (10-50); Mean Corpuscular HGB Conc 31.5 g/dL (31.8-35.4); Mean Corpuscular Hemoglobin 31.4 pg (27.0-31.2); Mean Corpuscular Volume 99.7 fl (81-99); Mean Platelet Volume 10.8 fl (7.4-10.4); Monocytes # 0.6 K/mm3 (0.1-1.0); Monocytes % 10.1 % (1.7-9.3); Neutrophils % 53.4 % (37.0-80.0); Nucleated Red Blood Cells # 0 10^3/uL; Nucleated Red Blood Cells % 0 %; Platelet Count 232 K/mm3 (142-424); Red Blood Count 3.98 M/mm3 (4.20-5.40); Red Cell Distribution Width 12.2 % (11.5-17.5); Red Cell Distribution Width-SD 45.1 fL; White Blood Count 5.6 K/mm3 (4.8-10.8)
[2025-01-07 18:02] LABS: Alanine Aminotransferase 20 U/L (12-78); Albumin Level 4.8 g/dl (3.5-5.0); Albumin/Globulin Ratio 2.1 (1.1-1.8); Alkaline Phosphatase 73 U/L (38-126); Anion Gap 9.7 mEq/L (5-15); Aspartate Amino Transferase 31 U/L (14-36); Bilirubin,Total 1.2 mg/dl (0.2-1.3); Blood Urea Nitrogen 16 mg/dl (7-17); Calcium 9.7 mg/dl (8.4-10.2); Carbon Dioxide 32 mmol/L (22.0-30.0); Chloride 102 mmol/L (98-107); Chol/HDL Ratio 2.2 (1-3.5); Cholesterol 204 mg/dl (140-200); Estimated Glomerular Filt Rate 68 ml/min (>60); GFR (African American) 83 ML/MIN (>60); Globulin 2.3 g/dL (1.3-3.2); Glucose 81 mg/dl (74-100); HDL Cholesterol 92 mg/dl (40-60); Potassium 4.7 mmoL/L (3.5-5.1); Sodium 139 mmol/L (136-145); Total Protein,Serum 7.1 g/dl (6.3-8.2); Triglycerides 81 mg/dl (30-150); VLDL Cholesterol 16 mg/dL (0-40)
[2025-01-07 18:07] LABS: Total Iron Binding Capacity 295 ug/dL (265-497)
[2025-01-07 18:12] LABS: Direct LDL Cholesterol 68.07 mg/dL (100-129)
[2025-01-07 18:35] LABS: Thyroid Stimulating Hormone 1.69 uIU/mL (0.465-4.68)
[2025-01-07 18:39] LABS: Ferritin 34.7 ng/ml (11.1-264)
[2025-01-07 19:21] LABS: Iron 108 ug/dL (37-170)
[2025-01-08 08:37] LABS: Hepatitis B Surface Antigen Negative (Negative)
--- OUTSIDE RECORDS SUMMARY | 2025-01-08 11:39 | XMS_ITS | Data Portability ---
Author Organization [facility] Address [address] [place] [address] Care Team Providers Care Feltmaker Name Role Phone ABDON ROJAS Referring Provider [phone] LOBO HARRIS Referring Provider ARMAAN HECK Referring Provider Assessment Encounter Date Assessment Date Assessment LastModified by Organization Details LastModified Time 01/21/2021 01/21/2021 Mrs Wynn presents for a wellness visit. She is accompanied by her . She has overall been doing well. She had an echocardiogram in May of 2019, that was stable with mild valvular regurgitation of the tricuspid, aortic and pulmonary valves. The ejection fraction is normal. She is now followed annually by her bulk plant agent, Dr. David. She has a history of chronic constipation that is controlled. She had a normal colonoscopy in 2008 and a negative cologuard screen in 2018. We can repeat the cologuard in 2021 as it is covered every 3 years. Depression screen is negative and fall risk is low. Medications are reconciled. Labs are reviewed. All labs are basically normal with only a marginal decrease in renal function. We continue to recommend annual mammograms. 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 She declined to try Prolia from the specialist 3 years ago and prefers to take the calcium and vitamin D supplements. We do understand and agree with her decision. Shingles vaccine is recommended by Medicare but not covered so she can check on the cost of the new Shingrix vaccine at a pharmacy. She has had the Covid vaccines. We encourage her to continue to work on healthy lifestyle choices. She and her should return for flu vaccines in the fall. But her next office visit wont be due until six months or as needed. melissa Not available 01/24/2021 21:08:04 07/27/2021 07/27/2021 Mrs Wynn presents for a check up. She is accompanied by her . She has overall been doing well. Fortunately she has stopped losing weight and has increased the necessary protein in her diet. She had an echocardiogram in May of 2019, that was stable with mild valvular regurgitation of the tricuspid, aortic and pulmonary valves. The ejection fraction is normal. She is now followed annually by her bulk plant agent, Dr. David. She has a history of chronic constipation that is controlled. She had a normal colonoscopy in 2008 and a negative cologuard screen in 2018. We can repeat the cologuard in 2021 as it is covered every 3 years. Medications are reconciled. Labs are reviewed and are normal. Shingles vaccine is recommended by Medicare but not covered so she can check on the cost of the new Shingrix vaccine at a pharmacy. She has had the Covid vaccines and her annual flu vaccine. We encourage her to continue her healthy lifestyle choices. melissa Not available 07/31/2021 22:14:18 09/21/2021 09/21/2021 Mrs. Wynn has been suffering from recurrent upper abdominal pain for a month or so that has been getting worse. The pain increases after eating and she has nausea. She still has her gall bladder and clinically we are concerned for gall bladder issues. She will be covered for GERD as well with the epigastric tenderness. We recommend labs as well as abdominal ultrasound. Pancreatic enzymes are normal but the total bilirubin has increased slightly. We will await the ultrasound results and order further imaging if indicated. melissa Not available 09/22/2021 08:53:51 01/24/2022 01/24/2022 Mrs Wynn presents for a wellness visit. She is accompanied by her . She did suffer a covid infection last month and i She has overall been doing well. She had an echocardiogram in May of 2019, that was stable with mild valvular regurgitation of the tricuspid, aortic and pulmonary valves. The ejection fraction is normal. She is now followed annually by her bulk plant agent, Dr. David. She has a history of chronic constipation that is controlled. She had a normal colonoscopy in 2008 and a negative cologuard screen in 2018. She did have a colonoscopy this spring and did have a tubular adenoma type of polyp. Depression screen is negative and fall risk is low. Medications are reconciled. Labs are reviewed. All labs are basically normal with only a marginal decrease in renal function. We continue to recommend annual mammograms. 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 She declined to try Prolia from the specialist 4 years ago and prefers to take the calcium and vitamin D supplements. We do understand and agree with her decision. Shingles vaccine is recommended by Medicare but not covered so she can check on the cost of the new Shingrix vaccine at a pharmacy. She has had the [employer] vaccines. We encourage her to continue to work on healthy lifestyle choices. She and her should return for flu vaccines in the fall. But her next office visit wont be due until six months or as needed. melissa Not available 01/25/2022 00:14:39 07/28/2022 07/28/2022 Mrs Wynn presents for a six month check up. She is accompanied by her . She has overall been doing well. She had an echocardiogram in May of 2019, that was stable with mild valvular regurgitation of the tricuspid, aortic and pulmonary valves. The ejection fraction was normal. She is now followed annually by her bulk plant agent, Dr. David, but he has recently postponed her appointment until September. Based upon the cardiovascular risk calculator her ten year risk is 34.65%. She has a history of chronic constipation that is controlled. She had a normal colonoscopy in 2008 and a negative cologuard screen in 2018. She did have a colonoscopy this spring and did have a tubular adenoma type of polyp. Medications are reconciled. Labs are reviewed. All labs are basically normal. Her mammogram in January was normal. She may choose to discontinue mammograms but if she wishes to continue that is fine too. 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 She declined to try Prolia from the specialist 4 years ago and prefers to take the calcium and vitamin D supplements. We do understand and agree with her decision. Shingles vaccine is recommended and it is possible that this coming year Medicare will start some coverage of that vaccine. We will update pneumonia vaccines with the Prevnar 20 such that no further pneumococcal vaccine will be needed. She does not really want to take the newest covid vaccine but we still have to recommend it. We encourage her to continue her healthy lifestyle. melissa Not available 07/31/2022 20:14:00 Plan of Treatment Reminders Order Date Submit Date Provider Last Modified By Organization Details Last Modified Time Details Appointments None recorded. Lab amylase + lipase, serum [address] [facility], [address] [place], [address], 10:28:45 CBC w/ auto diff 2021 [facility], [address] [place], [address], 07:28:59 CMP, serum or plasma 2021 [facility], [address] [place], [address], 07:28:58 urinalysis, dipstick 2021 [facility], [address] [place], [address], 16:32:31 Referral None recorded. Procedures None recorded. Surgeries None recorded. Imaging MAMMO, screening, digital, bilateral 2021 [facility] (Scheduling), [address] [place] [place], [address], 10:40:11 US, abdomen, complete [address] (Scheduling), [address] [place] [place], [address], 15:37:03 MAMMO, screening, digital, bilateral 2020 021 [facility] (Scheduling), [address] , [place], [address], 12:47:11 Medication Orders gabapentin 300 mg capsule 2021 [facility][id number], [address], [place], [id number], 10:20:49 omeprazole 40 mg capsule,del ayed release 2021 [facility] #08125, [address], [place], [id number], 10:20:45 lisinopril 10 mg tablet 2021 [facility] #01274, [address], [place], [id number], 10:20:47 pravastatin 10 mg tablet 2021 [facility] #77199, [address], [place], [id number], 10:20:45 fluticasone propionate 50 mcg/actuati on nasal spray,suspe nsion 2021 [facility] #33237, [address], [place], [id number], 10:20:44 gabapentin 300 mg capsule 2021 [facility], [address] [place], [address], 11:14:18 lisinopril 10 mg-hydrochl orothiazide 12.5 mg tablet [address] [place] [address] Pharmacy [address], [address] [place], [address], 12/29/202 2 10:16:57 pravastatin 10 mg tablet 2021 022 [facility], [address] [place] [address], [address], 2 11:14:20 fluticasone propionate 50 mcg/actuati on nasal spray,suspe nsion 2021 022 [facility] [address], [address] [place] [address], [address], 2 11:14:26 omeprazole 40 mg capsule,del ayed release [address], [address] [place] [address], [address], 2 09:46:52 gabapentin 300 mg capsule 2020 021 [facility] [address], [address] [place] [address], [address], 1 11:06:07 lisinopril 10 mg-hydrochl orothiazide 12.5 mg tablet [address], [address] [place] [address], [address], 2 10:16:57 pravastatin 10 mg tablet 2020 021 [facility] [address], [address] [place] [address], [address], 1 11:06:10 fluticasone propionate 50 mcg/actuati on nasal spray,suspe nsion 2020 021 [facility] [address], [address] [place] [address], [address], 1 11:06:13 Patient TargetsNo targets recorded. Patient InstructionsNo instructions recorded. Reason for Referral None Reported. Results Created Date Observation Date Name Description Value Unit Range Abnormal Flag Note LastModifiedBy Organization Detail LastModifiedTime 01/12/2001/12/2021 lipid panel , serum cholesterol, total 178 mg/dL <200 normal Not Available [facility] [address] [place], [address], 01/12/2021 08:00:17 01/12/2001/12/2021 lipid panel , serum HDL cholesterol 79 mg/dL > or = 50 normal Not Available [facility] [address] [place], [address], 01/12/2021 08:00:17 01/12/2001/12/2021 lipid panel , serum triglyceride s 66 mg/dL <150 normal Not Available [facility] [address] [place], [address], 01/12/2021 08:00:17 01/12/2001/12/2021 lipid panel , serum LDL-choleste rol 84 mg/dL _(declan c) normal Refer ence range : <100 Jayden able range <100 mg/dL for prima ry preve ntion ; <70 mg/dL for patie nts with CHD or diabe tic patie nts with > or = 2 CHD risk facto rs. LDL-C is now calcu lated using the Zeinab n-Hop kins calcu latadriana n, which is a valid ated novel spencero john meraz r accur acy than the Fried sharon equat ion in the estim ation of LDL-C . Zeinab VICTOR et al. PERRY. 2013; 310(1 9): 2061- 2068 (http ://ed ucati on.Qu elizabethDi Popegos. com/f aq/FA Q164) Not Available [facility] [address] [place], [address], 01/12/2021 08:00:17 01/12/2001/12/2021 lipid panel , serum chol/HDLC ratio 2.3 (calc ) <5.0 normal Not Available [facility] [address] [place], [address], 01/12/2021 08:00:17 01/12/2001/12/2021 lipid panel , serum non HDL cholesterol 99 mg/dL _(declan c) <130 normal For patie nts with diabe hattie plus 1 major ASCVD risk facto r, treat ing to a non-H DL-C goal of <100 mg/dL (LDL- C of <70 mg/dL ) is consi dered a thera peuti c optio n. Not Available [facility] [address] [place], [address], 01/12/2021 08:00:17 01/12/2001/12/2021 CMP, serum or plasm a glucose 89 mg/dL 65-99 normal Fasti ng refer ence inter abdias Not Available [facility] [address] [place], [address], 01/12/2021 08:00:18 01/12/2001/12/2021 CMP, serum or plasm a urea nitrogen (BUN) 16 mg/dL 7-25 normal Not Available [facility] [address] [place], [address], 01/12/2021 08:00:18 01/12/2001/12/2021 CMP, serum or plasm a creatinine 0.92 mg/dL 0.60-0 .88 high For patie nts >49 years of age, the refer ence limit for Creat inine is appro ximat herb 13% highe r for peopl e ident ified as Afric an-Am jeri n. Not Available [facility] [address] [place], [address], 01/12/2021 08:00:18 01/12/2001/12/2021 CMP, serum or plasm a eGFR non-afr. panamanian 59 mL/mi n/1.7 3m2 > or = 60 low Not Available [facility] [address] [facility] [place], [address], 01/12/2021 08:00:18 01/12/2001/12/2021 CMP, serum or plasm a eGFR 68 mL/mi n/1.7 3m2 > or = 60 normal Not Available [facility] [address] [facility] [place], [address], 01/12/2021 08:00:18 01/12/2001/12/2021 CMP, serum or plasm a BUN/creatini ne ratio 17 (calc ) 6-22 normal Not Available [facility] [address] [facility] [place], [address], 01/12/2021 08:00:18 01/12/2001/12/2021 CMP, serum or plasm a sodium 135 mmol/ L 135-14 6 normal Not Available [facility] [address] [facility] [place], [address], 01/12/2021 08:00:18 01/12/2001/12/2021 CMP, serum or plasm a potassium 5.1 mmol/ L 3.5-5. 3 normal Not Available [facility] [address] [facility] [place], [address], 01/12/2021 08:00:18 01/12/2001/12/2021 CMP, serum or plasm a chloride 96 mmol/ L 98-110 low Not Available [facility] [address] [facility] [place], [address], 01/12/2021 08:00:18 01/12/2001/12/2021 CMP, serum or plasm a carbon dioxide 31 mmol/ L 20-32 normal Not Available [facility] [address] [facility] [place], [address], 01/12/2021 08:00:18 01/12/2001/12/2021 CMP, serum or plasm a calcium 10.3 mg/dL 8.6-10 .4 normal Not Available [facility] [place], [address], 01/12/2021 08:00:18 01/12/2001/12/2021 CMP, serum or plasm a protein, total 7.0 g/dL 6.1-8. 1 normal Not Available [facility] [address] [place], [place] [address], [address], 01/12/2021 08:00:18 01/12/2001/12/2021 CMP, serum or plasm a albumin 4.5 g/dL 3.6-5. 1 normal Not Available [address] [place], [address], 01/12/2021 08:00:18 01/12/2001/12/2021 CMP, serum or plasm a globulin 2.5 g/dL_ (calc ) 1.9-3. 7 normal Not Available [address] [place], [address], 01/12/2021 08:00:18 01/12/2001/12/2021 CMP, serum or plasm a albumin/glob ulin ratio 1.8 (calc ) 1.0-2. 5 normal Not Available [facility] [address] [place], [address], 01/12/2021 08:00:18 01/12/2001/12/2021 CMP, serum or plasm a bilirubin, total 1.1 mg/dL 0.2-1. 2 normal Not Available [facility] [address] [place], [address], 01/12/2021 08:00:18 01/12/2001/12/2021 CMP, serum or plasm a alkaline phosphatase 54 U/L 37-153 normal Not Available [facility] [address] [facility] [place], [address], 01/12/2021 08:00:18 01/12/2001/12/2021 CMP, serum or plasm a AST 18 U/L 10-35 normal Not Available [facility] [address] [facility] [place], [address], 01/12/2021 08:00:18 01/12/2001/12/2021 CMP, serum or plasm a ALT 16 U/L 6-29 normal Not Available [facility] [address] [facility] [place], [address], 01/12/2021 08:00:18 01/12/2001/12/2021 TSH, serum or plasm a TSH 1.47 mIU/L 0.40-4 .50 normal Not Available [facility] [address] [facility] [place], [address], 01/12/2021 08:00:18 01/12/2001/12/2021 CBC w/ auto diff white blood cell count 4.6 thous and/u L 3.8-10 .8 normal Not Available [facility] [place], [address], 01/12/2021 08:00:18 01/12/2001/12/2021 CBC w/ auto diff red blood cell count 4.12 chaz on/uL 3.80-5 .10 normal Not Available [facility] [address] [facility] [place], [address], 01/12/2021 08:00:18 01/12/2001/12/2021 CBC w/ auto diff hemoglobin 12.4 g/dL 11.7-1 5.5 normal Not Available [facility] [address] [place], [address], 01/12/2021 08:00:18 01/12/2001/12/2021 CBC w/ auto diff hematocrit 37.9 % 35.0-4 5.0 normal Not Available [facility] [address] [place], [address], 01/12/2021 08:00:18 01/12/2001/12/2021 CBC w/ auto diff MCV 92.0 fL 80.0-1 00.0 normal Not Available [facility] [address] [place], [address], 01/12/2021 08:00:18 01/12/2001/12/2021 CBC w/ auto diff MCH 30.1 pg 27.0-3 3.0 normal Not Available [facility] [address] [place], [address], 01/12/2021 08:00:18 01/12/2001/12/2021 CBC w/ auto diff MCHC 32.7 g/dL 32.0-3 6.0 normal Not Available [facility] [address] [place], [address], 01/12/2021 08:00:18 01/12/2001/12/2021 CBC w/ auto diff RDW 11.7 % 11.0-1 5.0 normal Not Available [facility] [address] [place], [address], 01/12/2021 08:00:18 01/12/2001/12/2021 CBC w/ auto diff platelet count 239 thous and/u L 140-40 0 normal Not Available [facility] [address] [place], [address], 01/12/2021 08:00:18 01/12/20 21 01/12/2021 CBC w/ auto diff MPV 10.5 fL 7.5-12 .5 normal Not Available [facility] [address] [place], [address], 01/12/2021 08:00:18 01/12/20 21 01/12/2021 CBC w/ auto diff absolute neutrophils 2571 cells /uL 1500-7 800 normal Not Available [facility] [address] [place], [address], 01/12/2021 08:00:18 01/12/2001/12/2021 CBC w/ auto diff absolute lymphocytes 1421 cells /uL 850-39 00 normal Not Available [facility] [address] [place], [address], 01/12/2021 08:00:18 01/12/2001/12/2021 CBC w/ auto diff absolute monocytes 465 cells /uL 200-95 0 normal Not Available [facility] [address] [facility] [place], [address], 01/12/2021 08:00:18 01/12/20 21 01/12/2021 CBC w/ auto diff absolute eosinophils 92 cells /uL 15-500 normal Not Available [facility] [address] [facility] [place], [address], 01/12/2021 08:00:18 01/12/2001/12/2021 CBC w/ auto diff absolute basophils 51 cells /uL 0-200 normal Not Available [facility] [address] [place], [address], 01/12/2021 08:00:18 01/12/2001/12/2021 CBC w/ auto diff neutrophils 55.9 % normal Not Available [facility] [address] [facility], [place], [address], 01/12/2021 08:00:18 01/12/20 21 01/12/2021 CBC w/ auto diff lymphocytes 30.9 % normal Not Available [facility] [address] [place], [address], 01/12/2021 08:00:18 01/12/20 21 01/12/2021 CBC w/ auto diff monocytes 10.1 % normal Not Available [facility] [address], [place], [address], 01/12/2021 08:00:18 01/12/20 21 01/12/2021 CBC w/ auto diff eosinophils 2.0 % normal Not Available [facility] [address], [place], [address], 01/12/2021 08:00:18 01/12/20 21 01/12/2021 CBC w/ auto diff basophils 1.1 % normal Not Available [facility] [address], [place], [address], 01/12/2021 08:00:18 07/13/20 21 07/14/2021 LIPID PANEL , STAND DANNA cholesterol, total 193 mg/dL <200 normal Not Available [facility] [address], [place], [address], 07/14/2021 06:48:59 07/13/20 21 07/14/2021 LIPID PANEL , STAND DANNA HDL cholesterol 93 mg/dL > or = 50 normal Not Available [facility] [address], [place], [address], 07/14/2021 06:48:59 07/13/20 21 07/14/2021 LIPID PANEL , STAND DANNA triglyceride s 49 mg/dL <150 normal Not Available [facility] [address], [place], [address], 07/14/2021 06:48:59 07/13/20 21 07/14/2021 LIPID PANEL , STAND DANNA LDL-choleste rol 86 mg/dL _(declan c) normal Refer ence range : <100 Jayden able range <100 mg/dL for prima ry preve ntion ; <70 mg/dL for patie nts with CHD or diabe tic patie nts with > or = 2 CHD risk facto rs. LDL-C is now calcu lated using the Zeinab n-Hop kins calcu latio n, which is a valid ated novel metho d provi ding mariya r accur acy than the [employer] sh[employer] equat ion in the estim ation of LDL-C . Zeinab conroy SS et al. PERRY. 2013; 310(1 9): 2061- 2068 (http ://ed ucati on.Qu elizabethEmergent Health. com/f aq/FA Q164) Not Available [facility] [address] [facility], [place], [address], 07/14/2021 06:48:59 07/13/20 21 07/14/2021 LIPID PANEL , STAND DANNA chol/HDLC ratio 2.1 (calc ) <5.0 normal Not Available [facility] [address] [facility], [place], [address], 07/14/2021 06:48:59 07/13/20 21 07/14/2021 LIPID PANEL , STAND DANNA non HDL cholesterol 100 mg/dL _(declan c) <130 normal For patie nts with diabe hattie plus 1 major ASCVD risk facto r, treat ing to a non-H DL-C goal of <100 mg/dL (LDL- C of <70 mg/dL ) is perry martinio n. Not Available [facility] [address] [facility] [place], [address], 07/14/2021 06:48:59 07/13/20 21 07/14/2021 COMPR EHENS BURT METAB OLIC PANEL glucose 90 mg/dL 65-99 normal Fasti ng refer ence inter abdias Not Available [facility] [address] [place], [address], 07/14/2021 06:48:59 07/13/20 21 07/14/2021 COMPR EHENS BURT METAB OLIC PANEL urea nitrogen (BUN) 15 mg/dL 7-25 normal Not Available [facility] [address] [place], [address], 07/14/2021 06:48:59 07/13/20 21 07/14/2021 COMPR EHENS BURT METAB OLIC PANEL creatinine 0.84 mg/dL 0.60-0 .88 normal For patie nts >49 years of age, the refer ence limit for Creat inine is appro ximat herb 13% highe r for peopl e ident ified as Afric an-Am jeri n. Not Available [facility] [address] [place], [address], 07/14/2021 06:48:59 07/13/20 21 07/14/2021 COMPR EHENS BURT METAB OLIC PANEL eGFR non-afr. panamanian 66 mL/mi n/1.7 3m2 > or = 60 normal Not Available [facility] [address] [place], [address], 07/14/2021 06:48:59 07/13/20 21 07/14/2021 COMPR EHENS BURT METAB OLIC PANEL eGFR 76 mL/mi n/1.7 3m2 > or = 60 normal Not Available [facility] [address] [place], [address], 07/14/2021 06:48:59 07/13/20 21 07/14/2021 COMPR EHENS BURT METAB OLIC PANEL BUN/creatini ne ratio NOT APPLIC ABLE (calc ) 6-22 Not Available [facility] [address] [place], [address], 07/14/2021 06:48:59 07/13/20 21 07/14/2021 COMPR EHENS BURT METAB OLIC PANEL sodium 137 mmol/ L 135-14 6 normal Not Available [facility] [address] [facility] [place], [address], 07/14/2021 06:48:59 07/13/20 21 07/14/2021 COMPR EHENS BURT METAB OLIC PANEL potassium 4.1 mmol/ L 3.5-5. 3 normal Not Available [facility] [address] [facility] [place], [address], 07/14/2021 06:48:59 07/13/20 21 07/14/2021 COMPR EHENS BURT METAB OLIC PANEL chloride 97 mmol/ L 98-110 low Not Available [facility] [address] [facility] [place], [address], 07/14/2021 06:48:59 07/13/20 21 07/14/2021 COMPR EHENS BURT METAB OLIC PANEL carbon dioxide 31 mmol/ L 20-32 normal Not Available [facility] [facility] [address] [place], [address], 07/14/2021 06:48:59 07/13/20 21 07/14/2021 COMPR EHENS BURT METAB OLIC PANEL calcium 10.0 mg/dL 8.6-10 .4 normal Not Available [facility] [address] [facility] [place], [address], 07/14/2021 06:48:59 07/13/2007/14/2021 COMPR EHENS BURT METAB OLIC PANEL protein, total 6.8 g/dL 6.1-8. 1 normal Not Available [facility] [address] [facility] [place], [address], 07/14/2021 06:48:59 07/13/20 21 07/14/2021 COMPR EHENS BURT METAB OLIC PANEL albumin 4.6 g/dL 3.6-5. 1 normal Not Available [facility] [address] [place], [address], 07/14/2021 06:48:59 07/13/20 21 07/14/2021 COMPR EHENS BURT METAB OLIC PANEL globulin 2.2 g/dL_ (calc ) 1.9-3. 7 normal Not Available [facility] [address], [place], [address], 07/14/2021 06:48:59 07/13/20 21 07/14/2021 COMPR EHENS BURT METAB OLIC PANEL albumin/glob ulin ratio 2.1 (calc ) 1.0-2. 5 normal Not Available [facility] [address], [place], [address], 07/14/2021 06:48:59 07/13/20 21 07/14/2021 COMPR EHENS BURT METAB OLIC PANEL bilirubin, total 1.0 mg/dL 0.2-1. 2 normal Not Available [facility] [address] [facility], [place], [address], 07/14/2021 06:48:59 07/13/20 21 07/14/2021 COMPR EHENS BURT METAB OLIC PANEL alkaline phosphatase 61 U/L 37-153 normal Not Available [facility] [address], [place], [address], 07/14/2021 06:48:59 07/13/20 21 07/14/2021 COMPR EHENS BURT METAB OLIC PANEL AST 21 U/L 10-35 normal Not Available [facility] [address] [facility], [place], [address], 07/14/2021 06:48:59 07/13/20 21 07/14/2021 COMPR EHENS BURT METAB OLIC PANEL ALT 18 U/L 6-29 normal Not Available [facility] [address] [place], [address], 07/14/2021 06:48:59 07/13/20 21 07/14/2021 TSH TSH 2.10 mIU/L 0.40-4 .50 normal Not Available [facility] [address] [facility] [facility] [place], [address], 07/14/2021 06:49:00 07/13/2007/14/2021 CBC (INCL UDES DIFF/ PLT) white blood cell count 4.5 thous and/u L 3.8-10 .8 normal Not Available [facility] [address] [place], [address], 07/14/2021 06:49:00 07/13/2007/14/2021 CBC (INCL UDES DIFF/ PLT) red blood cell count 4.03 chaz on/uL 3.80-5 .10 normal Not Available [facility] [address] [facility] [place], [address], 07/14/2021 06:49:00 07/13/2007/14/2021 CBC (INCL UDES DIFF/ PLT) hemoglobin 12.5 g/dL 11.7-1 5.5 normal Not Available [facility] [address] [place], [address], 07/14/2021 06:49:00 07/13/2007/14/2021 CBC (INCL UDES DIFF/ PLT) hematocrit 36.5 % 35.0-4 5.0 normal Not Available [facility] [address] [place], [address], 07/14/2021 06:49:00 07/13/2007/14/2021 CBC (INCL UDES DIFF/ PLT) MCV 90.6 fL 80.0-1 00.0 normal Not Available [facility] [address] [place], [address], 07/14/2021 06:49:00 07/13/2007/14/2021 CBC (INCL UDES DIFF/ PLT) MCH 31.0 pg 27.0-3 3.0 normal Not Available [facility] [address] [place], [address], 07/14/2021 06:49:00 07/13/2007/14/2021 CBC (INCL UDES DIFF/ PLT) MCHC 34.2 g/dL 32.0-3 6.0 normal Not Available [facility] [address] [place], [address], 07/14/2021 06:49:00 07/13/2007/14/2021 CBC (INCL UDES DIFF/ PLT) RDW 11.5 % 11.0-1 5.0 normal Not Available [facility] [address] [place], [address], 07/14/2021 06:49:00 07/13/2007/14/2021 CBC (INCL UDES DIFF/ PLT) platelet count 259 thous and/u L 140-40 0 normal Not Available [facility] [address] [place], [address], 07/14/2021 06:49:00 07/13/2007/14/2021 CBC (INCL UDES DIFF/ PLT) MPV 10.5 fL 7.5-12 .5 normal Not Available [facility] [address] [place], [address], 07/14/2021 06:49:00 07/13/20 21 07/14/2021 CBC (INCL UDES DIFF/ PLT) absolute neutrophils 2502 cells /uL 1500-7 800 normal Not Available [facility] [address], [place], [address], 07/14/2021 06:49:00 07/13/2007/14/2021 CBC (INCL UDES DIFF/ PLT) absolute lymphocytes 1404 cells /uL 850-39 00 normal Not Available [facility] [address], [place], [address], 07/14/2021 06:49:00 07/13/2007/14/2021 CBC (INCL UDES DIFF/ PLT) absolute monocytes 473 cells /uL 200-95 0 normal Not Available [facility] [address], [place], [address], 07/14/2021 06:49:00 07/13/2007/14/2021 CBC (INCL UDES DIFF/ PLT) absolute eosinophils 81 cells /uL 15-500 normal Not Available [facility] [address], [place], [address], 07/14/2021 06:49:00 07/13/2007/14/2021 CBC (INCL UDES DIFF/ PLT) absolute basophils 41 cells /uL 0-200 normal Not Available [facility] [address], [place], [address], 07/14/2021 06:49:00 07/13/2007/14/2021 CBC (INCL UDES DIFF/ PLT) neutrophils 55.6 % normal Not Available [facility] [address], [place], [address], 07/14/2021 06:49:00 07/13/2007/14/2021 CBC (INCL UDES DIFF/ PLT) lymphocytes 31.2 % normal Not Available [facility] [address], [place], [address], 07/14/2021 06:49:00 07/13/20 21 07/14/2021 CBC (INCL UDES DIFF/ PLT) monocytes 10.5 % normal Not Available [facility] [address] [place], [address], 07/14/2021 06:49:00 07/13/20 21 07/14/2021 CBC (INCL UDES DIFF/ PLT) eosinophils 1.8 % normal Not Available [facility] [address] [place], [address], 07/14/2021 06:49:00 07/13/20 21 07/14/2021 CBC (INCL UDES DIFF/ PLT) basophils 0.9 % normal Not Available [facility] [address] [place], [address], 07/14/2021 06:49:00 09/21/19 22 09/22/2021 COMPR EHENS BURT METAB OLIC PANEL glucose 107 mg/dL 65-99 high Fasti ng refer ence inter abdias For someo ne witho ut known diabe hattie, a gluco se value betwe en 100 and 125 mg/dL is consi stent with predi abete s and shoul d be confi rmed with a follo w-up test. Not Available [facility] [address] [place], [address], 09/22/2021 07:28:57 09/21/19 22 09/22/2021 COMPR EHENS BURT METAB OLIC PANEL urea nitrogen (BUN) 13 mg/dL 7-25 normal Not Available [facility] [address] [place], [address], 09/22/2021 07:28:57 09/21/19 22 09/22/2021 COMPR EHENS BURT METAB OLIC PANEL creatinine 0.83 mg/dL 0.60-0 .88 normal For patie nts >49 years of age, the refer ence limit for Creat inine is appro jerry estevez 13% highe r for peopl e ident ified as Afric an-Am jeri n. Not Available [facility] [address] [place], [address], 09/22/2021 07:28:57 09/21/19 22 09/22/2021 COMPR EHENS BURT METAB OLIC PANEL eGFR non-afr. panamanian 66 mL/mi n/1.7 3m2 > or = 60 normal Not Available [facility] [address] [place], [address], 09/22/2021 07:28:57 09/21/19 22 09/22/2021 COMPR EHENS BURT METAB OLIC PANEL eGFR 77 mL/mi n/1.7 3m2 > or = 60 normal Not Available [facility] [address], [place], [address], 09/22/2021 07:28:57 09/21/19 22 09/22/2021 COMPR EHENS BURT METAB OLIC PANEL BUN/creatini ne ratio NOT APPLIC ABLE (calc ) 6-22 Not Available [facility] [address], [place], [address], 09/22/2021 07:28:57 09/21/19 22 09/22/2021 COMPR EHENS BURT METAB OLIC PANEL sodium 132 mmol/ L 135-14 6 low Not Available [facility] [address] [place], [address], 09/22/2021 07:28:57 09/21/19 22 09/22/2021 COMPR EHENS BURT METAB OLIC PANEL potassium 4.9 mmol/ L 3.5-5. 3 normal Not Available [facility] [address] [place], [address], 09/22/2021 07:28:57 09/21/19 22 09/22/2021 COMPR EHENS BURT METAB OLIC PANEL chloride 93 mmol/ L 98-110 low Not Available [facility] [address] [place], [address], 09/22/2021 07:28:57 09/21/19 22 09/22/2021 COMPR EHENS BURT METAB OLIC PANEL carbon dioxide 33 mmol/ L 20-32 high Not Available [facility] [address] [place], [address], 09/22/2021 07:28:57 09/21/19 22 09/22/2021 COMPR EHENS BURT METAB OLIC PANEL calcium 10.4 mg/dL 8.6-10 .4 normal Not Available [facility] [address] [place], [address], 09/22/2021 07:28:57 09/21/19 22 09/22/2021 COMPR EHENS BURT METAB OLIC PANEL protein, total 7.4 g/dL 6.1-8. 1 normal Not Available [facility] [address] [place], [address], 09/22/2021 07:28:57 09/21/19 22 09/22/2021 COMPR EHENS BURT METAB OLIC PANEL albumin 4.7 g/dL 3.6-5. 1 normal Not Available [facility] [address] [place], [address], 09/22/2021 07:28:57 09/21/19 22 09/22/2021 COMPR EHENS BURT METAB OLIC PANEL globulin 2.7 g/dL_ (calc ) 1.9-3. 7 normal Not Available [facility] [address] [place], [address], 09/22/2021 07:28:57 09/21/19 22 09/22/2021 COMPR EHENS BURT METAB OLIC PANEL albumin/glob ulin ratio 1.7 (calc ) 1.0-2. 5 normal Not Available [facility] [address] [place], [address], 09/22/2021 07:28:57 09/21/19 22 09/22/2021 COMPR EHENS BURT METAB OLIC PANEL bilirubin, total 1.3 mg/dL 0.2-1. 2 high Not Available [facility] [address] [place], [address], 09/22/2021 07:28:57 09/21/19 22 09/22/2021 COMPR EHENS BURT METAB OLIC PANEL alkaline phosphatase 72 U/L 37-153 normal Not Available [facility] [address] [place], [address], 09/22/2021 07:28:57 09/21/19 22 09/22/2021 COMPR EHENS BURT METAB OLIC PANEL AST 18 U/L 10-35 normal Not Available [facility] [address] [place], [address], 09/22/2021 07:28:57 09/21/19 22 09/22/2021 COMPR EHENS BURT METAB OLIC PANEL ALT 18 U/L 6-29 normal Not Available [facility] [address] [place], [address], 09/22/2021 07:28:57 09/21/19 22 09/22/2021 AMYLA SE amylase 67 U/L 21-101 normal Not Available [facility] [address] [place], [address], 09/22/2021 07:28:58 09/21/19 22 09/22/2021 LIPAS E lipase 25 U/L 7-60 normal Not Available [facility] [address] [place], [address], 09/22/2021 07:28:59 09/21/19 22 09/22/2021 CBC (INCL UDES DIFF/ PLT) white blood cell count 7.5 thous and/u L 3.8-10 .8 normal Not Available [facility] [address] [place], [address], 09/22/2021 07:28:59 09/21/19 22 09/22/2021 CBC (INCL UDES DIFF/ PLT) red blood cell count 4.35 chaz on/uL 3.80-5 .10 normal Not Available [facility] [address] [place], [address], 09/22/2021 07:28:59 09/21/19 22 09/22/2021 CBC (INCL UDES DIFF/ PLT) hemoglobin 12.9 g/dL 11.7-1 5.5 normal Not Available [facility] [address] [place], [address], 09/22/2021 07:28:59 09/21/1909/22/2021 CBC (INCL UDES DIFF/ PLT) hematocrit 39.1 % 35.0-4 5.0 normal Not Available [facility] [address] [place], [address], 09/22/2021 07:28:59 09/21/19 22 09/22/2021 CBC (INCL UDES DIFF/ PLT) MCV 89.9 fL 80.0-1 00.0 normal Not Available [facility] [address] [place], [address], 09/22/2021 07:28:59 09/21/19 22 09/22/2021 CBC (INCL UDES DIFF/ PLT) MCH 29.7 pg 27.0-3 3.0 normal Not Available [facility] [address] [place], [address], 09/22/2021 07:28:59 09/21/19 22 09/22/2021 CBC (INCL UDES DIFF/ PLT) MCHC 33.0 g/dL 32.0-3 6.0 normal Not Available [facility] [address] [facility] [place], [address], 09/22/2021 07:28:59 09/21/19 22 09/22/2021 CBC (INCL UDES DIFF/ PLT) RDW 11.7 % 11.0-1 5.0 normal Not Available [facility] [address] [place], [address], 09/22/2021 07:28:59 09/21/19 22 09/22/2021 CBC (INCL UDES DIFF/ PLT) platelet count 323 thous and/u L 140-40 0 normal Not Available [facility] [address] [place], [address], 09/22/2021 07:28:59 09/21/19 22 09/22/2021 CBC (INCL UDES DIFF/ PLT) MPV 10.4 fL 7.5-12 .5 normal Not Available [facility] [address] [place], [address], 09/22/2021 07:28:59 09/21/19 22 09/22/2021 CBC (INCL UDES DIFF/ PLT) absolute neutrophils 4703 cells /uL 1500-7 800 normal Not Available [facility] [address] [place], [address], 09/22/2021 07:28:59 09/21/19 22 09/22/2021 CBC (INCL UDES DIFF/ PLT) absolute lymphocytes 1800 cells /uL 850-39 00 normal Not Available [facility] [address] [place], [address], 09/22/2021 07:28:59 09/21/19 22 09/22/2021 CBC (INCL UDES DIFF/ PLT) absolute monocytes 840 cells /uL 200-95 0 normal Not Available [facility] [address] [place], [address], 09/22/2021 07:28:59 09/21/19 22 09/22/2021 CBC (INCL UDES DIFF/ PLT) absolute eosinophils 98 cells /uL 15-500 normal Not Available [facility] [address], [place], [address], 09/22/2021 07:28:59 09/21/19 22 09/22/2021 CBC (INCL UDES DIFF/ PLT) absolute basophils 60 cells /uL 0-200 normal Not Available [facility] [address] [place], [address], 09/22/2021 07:28:59 09/21/19 22 09/22/2021 CBC (INCL UDES DIFF/ PLT) neutrophils 62.7 % normal Not Available [facility] [address], [place], [address], 09/22/2021 07:28:59 09/21/19 22 09/22/2021 CBC (INCL UDES DIFF/ PLT) lymphocytes 24.0 % normal Not Available [facility] [address], [place], [address], 09/22/2021 07:28:59 09/21/19 22 09/22/2021 CBC (INCL UDES DIFF/ PLT) monocytes 11.2 % normal Not Available [facility] [address], [place], [address], 09/22/2021 07:28:59 09/21/19 22 09/22/2021 CBC (INCL UDES DIFF/ PLT) eosinophils 1.3 % normal Not Available [facility] [address], [place], [address], 09/22/2021 07:28:59 09/21/19 22 09/22/2021 CBC (INCL UDES DIFF/ PLT) basophils 0.8 % normal Not Available [facility] [address], [place], [address], 09/22/2021 07:28:59 09/21/19 22 09/21/2021 urina lysis , dipst ick Leukocytes Negati ve Not Available [facility] [address] [place], [address], 09/21/2021 11:05:14 09/21/19 22 09/21/2021 urina lysis , dipst ick Nitrite negati ve Not Available [facility] [address] [place], [address], 09/21/2021 11:05:14 09/21/19 22 09/21/2021 urina lysis , dipst ick Urobilinogen .2 Not Available [facility] [address] [place], [address], 09/21/2021 11:05:14 09/21/19 22 09/21/2021 urina lysis , dipst ick Protein Negati ve Not Available [facility] [address] [place], [address], 09/21/2021 11:05:14 09/21/19 22 09/21/2021 urina lysis , dipst ick pH 6.0 Not Available [facility] [address] [place], [address], 09/21/2021 11:05:14 09/21/19 22 09/21/2021 urina lysis , dipst ick Blood Negati ve Not Available [facility] [address] [place], [address], 09/21/2021 11:05:14 09/21/19 22 09/21/2021 urina lysis , dipst ick Specific [place] 1.010 Not Available [facility] [address] [place], [address], 09/21/2021 11:05:14 09/21/19 22 09/21/2021 urina lysis , dipst ick Ketone Negati ve Not Available [facility] [address] [place], [address], 09/21/2021 11:05:14 09/21/19 22 09/21/2021 urina lysis , dipst ick Bilirubin Negati ve Not Available [facility] [address] [place], [address], 09/21/2021 11:05:14 09/21/19 22 09/21/2021 urina lysis , dipst ick Glucose Negati ve Not Available [facility] [address] [place], [address], 09/21/2021 11:05:14 12/25/19 22 12/24/2021 CBC AUTO W DIFF WBC 2.8 10 4.5-11 .5 low Not Available [facility] (Lab Registration) [address] [place] [place], [address], 12/24/2021 12:10:42 12/25/19 22 12/24/2021 CBC AUTO W DIFF RBC 3.87 10 4.25-5 .57 low Not Available [facility] (Lab Registration) [address] [place], [address], 12/24/2021 12:10:42 12/25/19 22 12/24/2021 CBC AUTO W DIFF HGB 11.6 g/dL 12.0-1 5.7 low Not Available [facility] (Lab Registration) [address] [place], [address], 12/24/2021 12:10:42 12/25/19 22 12/24/2021 CBC AUTO W DIFF HCT 34.6 % 36.0-4 7.0 low Not Available [facility] (Lab Registration) [address] [place], [address], 12/24/2021 12:10:42 12/25/19 22 12/24/2021 CBC AUTO W DIFF MCV 89.4 fL 80-95 Not Available [facility] (Lab Registration) [address] [place], [address], 12/24/2021 12:10:42 12/25/19 22 12/24/2021 CBC AUTO W DIFF MCH 30.0 pg 27.0-3 4.0 Not Available [facility] (Lab Registration) [address] [place], [address], 12/24/2021 12:10:42 12/25/19 22 12/24/2021 CBC AUTO W DIFF MCHC 33.5 g/dL 32.0-3 6.0 Not Available [facility] (Lab Registration) [address] [place], [address], 12/24/2021 12:10:42 12/25/19 22 12/24/2021 CBC AUTO W DIFF platelet count 169 10 150-45 0 Not Available [facility] (Lab Registration) [address] [place], [address], 12/24/2021 12:10:42 12/25/19 22 12/24/2021 CBC AUTO W DIFF RDW 11.8 % 12.3-1 5.1 low Not Available [facility] (Lab Registration) [address] [place], [address], 12/24/2021 12:10:42 12/25/19 22 12/24/2021 CBC AUTO W DIFF MPV 9.6 fL 7.4-10 .4 Not Available [facility] (Lab Registration) [address] [place], [address], 12/24/2021 12:10:42 12/25/19 22 12/24/2021 CBC AUTO W DIFF granulocyte% 56.5 % 40-75 Not Available [facility] (Lab Registration) [address] [place], [address], 12/24/2021 12:10:42 12/25/19 22 12/24/2021 CBC AUTO W DIFF lymphocyte% 26.9 % 15-57 Not Available [facility] (Lab Registration) [address] [place], [address], 12/24/2021 12:10:42 12/25/19 22 12/24/2021 CBC AUTO W DIFF monocyte% 15.8 % 4.0-12 .0 high Not Available [facility] (Lab Registration) [address] [place], [address], 12/24/2021 12:10:42 12/25/19 22 12/24/2021 CBC AUTO W DIFF eosinophil% 0.4 % 0.0-4. 0 Not Available [facility] (Lab Registration) [address] [place], [address], 12/24/2021 12:10:42 12/25/19 22 12/24/2021 CBC AUTO W DIFF basophil% 0.4 % 0.0-1. 0 Not Available [facility] (Lab Registration) [address] [place], [address], 12/24/2021 12:10:42 12/25/19 22 12/24/2021 CBC AUTO W DIFF immature granulocytes % 0.0 % 0.0-0. 8 Not Available [facility] (Lab Registration) [address] [place], [address], 12/24/2021 12:10:42 12/25/19 22 12/24/2021 CBC AUTO W DIFF granulocyte# 1.58 10 Not Available [facility] (Lab Registration) [address] [place], [address], 12/24/2021 12:10:42 12/25/19 22 12/24/2021 CBC AUTO W DIFF lymphocyte# 0.75 10 Not Available [facility] (Lab Registration) [address], [place], [address], 12/24/2021 12:10:42 12/25/19 22 12/24/2021 CBC AUTO W DIFF monocyte# 0.44 10 Not Available [facility] (Lab Registration) [address] [place], [address], 12/24/2021 12:10:42 12/25/19 22 12/24/2021 CBC AUTO W DIFF eosinophil# 0.01 10 Not Available [facility] (Lab Registration) [address], [place], [address], 12/24/2021 12:10:42 12/25/19 22 12/24/2021 CBC AUTO W DIFF basophil# 0.01 10 Not Available [facility] (Lab Registration) [address] [place], [address], 12/24/2021 12:10:42 12/25/19 22 12/24/2021 CBC AUTO W DIFF immature granulocytes # 0.00 10 Not Available [facility] (Lab Registration) [address], [place], [address], 12/24/2021 12:10:42 12/25/19 22 12/24/2021 CBC AUTO W DIFF manual differential NO Not Available [facility] (Lab Registration) [address] [place], [address], 12/24/2021 12:10:42 12/25/19 22 12/24/2021 CBC AUTO W DIFF note Unles s other ramirez noted testi ng perfo rmed at: [facility] [address] [place] [place] [address] [phone] Williams padilla MD CLIA: [id number] Not Available [facility] (Lab Registration) [address] [place], [address], 12/24/2021 12:10:42 12/25/19 22 12/24/2021 BASIC METAB OLIC PANEL sodium 128 mmol/ L 136-14 5 low Not Available [facility] (Lab Registration) [address] [place], [address], 12/24/2021 12:23:16 12/25/19 22 12/24/2021 BASIC METAB OLIC PANEL potassium 4.8 mmol/ L 3.5-5. 1 Not Available [facility] (Lab Registration) [address] [place], [address], 12/24/2021 12:23:16 12/25/19 22 12/24/2021 BASIC METAB OLIC PANEL chloride 91 mmol/ L 98-107 low Not Available [facility] (Lab Registration) [address] [place], [address], 12/24/2021 12:23:16 12/25/19 22 12/24/2021 BASIC METAB OLIC PANEL carbon dioxide 30 mmol/ L 21-32 Not Available [facility] (Lab Registration) [address] [place], [address], 12/24/2021 12:23:16 12/25/19 22 12/24/2021 BASIC METAB OLIC PANEL anion gap 7.0 Not Available [facility] (Lab Registration) [address] [place], [address], 12/24/2021 12:23:16 12/25/19 22 12/24/2021 BASIC METAB OLIC PANEL glucose 101 mg/dL 70-110 Not Available [facility] (Lab Registration) [address] [place], [address], 12/24/2021 12:23:16 12/25/19 22 12/24/2021 BASIC METAB OLIC PANEL blood urea nitrogen 14 mg/dL 7-18 Not Available [facility] (Lab Registration) [address] [place], [address], 12/24/2021 12:23:16 12/25/19 22 12/24/2021 BASIC METAB OLIC PANEL creatinine 0.8 mg/dL 0.6-1. 0 Not Available [facility] (Lab Registration) [address] [place], [address], 12/24/2021 12:23:16 12/25/19 22 12/24/2021 BASIC METAB OLIC PANEL BUN/creatini ne ratio 17.5 ratio 9-21 Not Available [facility] (Lab Registration) [address] [place], [address], 12/24/2021 12:23:16 12/25/19 22 12/24/2021 BASIC METAB OLIC PANEL estimated glom filtration rate 73 mL/mi n >60- Not Available [facility] (Lab Registration) [address] [place], [address], 12/24/2021 12:23:16 12/25/19 22 12/24/2021 BASIC METAB OLIC PANEL calcium 8.7 mg/dL 8.5-10 .1 Not Available [facility] (Lab Registration) [address] [place], [address], 12/24/2021 12:23:16 12/25/19 22 12/24/2021 BASIC METAB OLIC PANEL note Unles s other ramirez noted testi ng perfo rmed at: [facility] [address] [place] [address] [phone] Williams padilla MD CLIA: [id number] Not Available [facility] (Lab Registration) [address] [place], [address], 12/24/2021 12:23:16 12/25/19 22 12/24/2021 MAGNE SIUM magnesium 1.9 mg/dL 1.8-2. 4 Not Available [facility] (Lab Registration) [address] [place], [address], 12/24/2021 12:23:17 12/25/19 22 12/24/2021 MAGNE SIUM note Unles s other ramirez noted testi ng perfo rmed at: [facility] [address] [place] [address] [phone] Williams padilla MD CLIA: [id number] Not Available [facility] (Lab Registration) [address] , [place], [address], 12/24/2021 12:23:17 01/19/20 22 01/19/2022 LIPID PANEL , STAND DANNA cholesterol, total 187 mg/dL <200 normal Not Available [facility] [place] [facility] [address] [facility], [place], [address], 01/19/2022 07:10:30 01/19/20 22 01/19/2022 LIPID PANEL , STAND DANNA HDL cholesterol 87 mg/dL > or = 50 normal Not Available [facility] [place] [facility] [address], [place], [address], 01/19/2022 07:10:30 01/19/20 22 01/19/2022 LIPID PANEL , STAND DANNA triglyceride s 72 mg/dL <150 normal Not Available [facility] [place] [facility] [address] [facility], [place], [address], 01/19/2022 07:10:30 01/19/20 22 01/19/2022 LIPID PANEL , STAND DANNA LDL-choleste rol 84 mg/dL _(declan c) normal Refer ence range : <100 Jayden able range <100 mg/dL for prima ry preve ntion ; <70 mg/dL for patie nts with CHD or diabe tic patie nts with > or = 2 CHD risk facto rs. LDL-C is now calcu lated using the Zeinab n-Hop kins calcu latadriana n, which is a valid ated novel david meraz r accur acy than the Fried sharon equat ion in the estim ation of LDL-C . Zeinab n SS et al. PERRY. 2013; 310(1 9): 2061- 2068 (http ://ed sofiaati on.[employer] Lakesha youNaytev. com/f aq/FA Q164) Not Available [facility] [place] [facility] [address] [facility], [place], [address], 01/19/2022 07:10:30 01/19/20 22 01/19/2022 LIPID PANEL , STAND DANNA chol/HDLC ratio 2.1 (calc ) <5.0 normal Not Available [facility] [place] [facility] [address] [facility], [place], [address], 01/19/2022 07:10:30 01/19/20 22 01/19/2022 LIPID PANEL , STAND DANNA non HDL cholesterol 100 mg/dL _(declan c) <130 normal For patie nts with diabe hattie plus 1 major ASCVD risk facto r, treat ing to a non-H DL-C goal of <100 mg/dL (LDL- C of <70 mg/dL ) is consi dered a thera peuti c optio n. Not Available [facility] [place] [facility] [address] [facility], [place], [address], 01/19/2022 07:10:30 01/19/20 22 01/19/2022 COMPR EHENS BURT METAB OLIC PANEL glucose 92 mg/dL 65-99 normal Fasti ng refer ence inter abdias Not Available [facility] [place] [facility] [address], [place], [address], 01/19/2022 07:10:30 01/19/20 22 01/19/2022 COMPR EHENS BURT METAB OLIC PANEL urea nitrogen (BUN) 10 mg/dL 7-25 normal Not Available [facility] [place] [facility] [address] [facility], [place], [address], 01/19/2022 07:10:30 01/19/20 22 01/19/2022 COMPR EHENS BURT METAB OLIC PANEL creatinine 0.74 mg/dL 0.60-0 .88 normal For patie nts >49 years of age, the refer ence limit for Creat inine is appro jerry estevez 13% highe r for peopl e ident ified as Afric an-Am jeri n. Not Available [facility] [address] [place], [address], 01/19/2022 07:10:30 01/19/20 22 01/19/2022 COMPR EHENS BURT METAB OLIC PANEL eGFR non-afr. panamanian 76 mL/mi n/1.7 3m2 > or = 60 normal Not Available [facility] [address] [facility] [place], [address], 01/19/2022 07:10:30 01/19/20 22 01/19/2022 COMPR EHENS BURT METAB OLIC PANEL eGFR 88 mL/mi n/1.7 3m2 > or = 60 normal Not Available [facility] [place] [facility] [address] [facility] [place], [address], 01/19/2022 07:10:30 01/19/20 22 01/19/2022 COMPR EHENS BURT METAB OLIC PANEL BUN/creatini ne ratio NOT APPLIC ABLE (calc ) 6-[address] [facility] [address] [facility] [place], [address], 01/19/2022 07:10:30 01/19/20 22 01/19/2022 COMPR EHENS BURT METAB OLIC PANEL sodium 136 mmol/ L 135-14 6 normal Not Available [facility] [place] [facility] [address] [place], [address], 01/19/2022 07:10:30 01/19/20 22 01/19/2022 COMPR EHENS BURT METAB OLIC PANEL potassium 5.1 mmol/ L 3.5-5. 3 normal Not Available [facility] [place] [facility] [address] [place], [address], 01/19/2022 07:10:30 01/19/20 22 01/19/2022 COMPR EHENS BURT METAB OLIC PANEL chloride 98 mmol/ L 98-110 normal Not Available [facility] [address] [facility] [place], [address], 01/19/2022 07:10:30 01/19/20 22 01/19/2022 COMPR EHENS BURT METAB OLIC PANEL carbon dioxide 31 mmol/ L 20-32 normal Not Available [facility] [address] [facility] [place], [address], 01/19/2022 07:10:30 01/19/20 22 01/19/2022 COMPR EHENS BURT METAB OLIC PANEL calcium 10.2 mg/dL 8.6-10 .4 normal Not Available [facility] [address] [facility] [place], [address], 01/19/2022 07:10:30 01/19/20 22 01/19/2022 COMPR EHENS BURT METAB OLIC PANEL protein, total 6.8 g/dL 6.1-8. 1 normal Not Available [facility] [address] [facility] [place], [address], 01/19/2022 07:10:30 01/19/20 22 01/19/2022 COMPR EHENS BURT METAB OLIC PANEL albumin 4.5 g/dL 3.6-5. 1 normal Not Available [facility] [address] [facility] [place], [address], 01/19/2022 07:10:30 01/19/20 22 01/19/2022 COMPR EHENS BURT METAB OLIC PANEL globulin 2.3 g/dL_ (calc ) 1.9-3. 7 normal Not Available [facility] [address] [facility], [place], [address], 01/19/2022 07:10:30 01/19/20 22 01/19/2022 COMPR EHENS BURT METAB OLIC PANEL albumin/glob ulin ratio 2.0 (calc ) 1.0-2. 5 normal Not Available [facility] [address] [facility] [place], [address], 01/19/2022 07:10:30 01/19/20 22 01/19/2022 COMPR EHENS BURT METAB OLIC PANEL bilirubin, total 1.1 mg/dL 0.2-1. 2 normal Not Available [facility] [address] [place], [address], 01/19/2022 07:10:30 01/19/20 22 01/19/2022 COMPR EHENS BURT METAB OLIC PANEL alkaline phosphatase 54 U/L 37-153 normal Not Available [facility] [address] [facility] [place], [address], 01/19/2022 07:10:30 01/19/20 22 01/19/2022 COMPR EHENS BURT METAB OLIC PANEL AST 18 U/L 10-35 normal Not Available [facility] [address] [facility] [place], [address], 01/19/2022 07:10:30 01/19/20 22 01/19/2022 COMPR EHENS BURT METAB OLIC PANEL ALT 14 U/L 6-29 normal Not Available [facility] [address] [facility] [place], [address], 01/19/2022 07:10:30 01/19/20 22 01/19/2022 TSH TSH 2.48 mIU/L 0.40-4 .50 normal Not Available [facility] [address] [facility] [place], [address], 01/19/2022 07:10:31 06/21/20 22 01/19/2022 CBC (INCL UDES DIFF/ PLT) white blood cell count 4.5 thous and/u L 3.8-10 .8 normal Not Available [facility] [place] [facility] [address], [place], [address], 01/19/2022 07:10:31 01/19/20 22 01/19/2022 CBC (INCL UDES DIFF/ PLT) red blood cell count 3.98 chaz on/uL 3.80-5 .10 normal Not Available [facility] [place] [facility] [address] [facility], [place], [address], 01/19/2022 07:10:31 01/19/20 22 01/19/2022 CBC (INCL UDES DIFF/ PLT) hemoglobin 12.0 g/dL 11.7-1 5.5 normal Not Available [facility] [place] [facility] [address] [facility] [address], [place], [address], 01/19/2022 07:10:31 01/19/20 22 01/19/2022 CBC (INCL UDES DIFF/ PLT) hematocrit 37.5 % 35.0-4 5.0 normal Not Available [facility] [place] [facility] [address] [facility] [address], [place], [address], 01/19/2022 07:10:31 01/19/20 22 01/19/2022 CBC (INCL UDES DIFF/ PLT) MCV 94.2 fL 80.0-1 00.0 normal Not Available [facility] [place] [facility] [address], [place], [address], 01/19/2022 07:10:31 01/19/20 22 01/19/2022 CBC (INCL UDES DIFF/ PLT) MCH 30.2 pg 27.0-3 3.0 normal Not Available [facility] [place] [facility] [address] [facility], [place], [address], 01/19/2022 07:10:31 06/21/20 22 01/19/2022 CBC (INCL UDES DIFF/ PLT) MCHC 32.0 g/dL 32.0-3 6.0 normal Not Available [facility] [place] [facility] [address], [place], [address], 01/19/2022 07:10:31 01/19/20 22 01/19/2022 CBC (INCL UDES DIFF/ PLT) RDW 12.1 % 11.0-1 5.0 normal Not Available [facility] [place] [facility] [address], [place], [address], 01/19/2022 07:10:31 01/19/20 22 01/19/2022 CBC (INCL UDES DIFF/ PLT) platelet count 230 thous and/u L 140-40 0 normal Not Available [facility] [place] [facility] [address] [facility] [address], [place], [address], 01/19/2022 07:10:31 01/19/20 22 01/19/2022 CBC (INCL UDES DIFF/ PLT) MPV 10.0 fL 7.5-12 .5 normal Not Available [facility] [place] [facility] [address], [place], [address], 01/19/2022 07:10:31 01/19/20 22 01/19/2022 CBC (INCL UDES DIFF/ PLT) absolute neutrophils 2705 cells /uL 1500-7 800 normal Not Available [facility] [place] [facility] [address], [place], [address], 01/19/2022 07:10:31 01/19/20 22 01/19/2022 CBC (INCL UDES DIFF/ PLT) absolute lymphocytes 1242 cells /uL 850-39 00 normal Not Available [facility] [address], [place], [address], 01/19/2022 07:10:31 01/19/20 22 01/19/2022 CBC (INCL UDES DIFF/ PLT) absolute monocytes 432 cells /uL 200-95 0 normal Not Available [facility] [place] [facility] [address], [place], [address], 01/19/2022 07:10:31 01/19/20 22 01/19/2022 CBC (INCL UDES DIFF/ PLT) absolute eosinophils 81 cells /uL 15-500 normal Not Available [facility] [place] [facility] [address], [place], [address], 01/19/2022 07:10:31 01/19/20 22 01/19/2022 CBC (INCL UDES DIFF/ PLT) absolute basophils 41 cells /uL 0-200 normal Not Available [facility] [place] [facility] [address], [place], [address], 01/19/2022 07:10:31 01/19/20 22 01/19/2022 CBC (INCL UDES DIFF/ PLT) neutrophils 60.1 % normal Not Available [facility] [place] [facility] [address], [place], [address], 01/19/2022 07:10:31 01/19/20 22 01/19/2022 CBC (INCL UDES DIFF/ PLT) lymphocytes 27.6 % normal Not Available [facility] [place] [facility] [address], [place], [address], 01/19/2022 07:10:31 01/19/20 22 01/19/2022 CBC (INCL UDES DIFF/ PLT) monocytes 9.6 % normal Not Available [facility] [place] [facility] [address], [place], [address], 01/19/2022 07:10:31 01/19/20 22 01/19/2022 CBC (INCL UDES DIFF/ PLT) eosinophils 1.8 % normal Not Available [facility] [place] [facility] [address], [place], [address], 01/19/2022 07:10:31 01/19/20 22 01/19/2022 CBC (INCL UDES DIFF/ PLT) basophils 0.9 % normal Not Available [facility] [place] [facility] [address] [facility], [place], [address], 01/19/2022 07:10:31 07/19/20 22 2022 LIPID PANEL , STAND DANNA cholesterol, total 187 mg/dL <200 normal Not Available [facility] [place] [facility] [address] [facility], [place], [address], 2022 13:42:06 07/19/20 22 2022 LIPID PANEL , STAND DANNA HDL cholesterol 94 mg/dL > or = 50 normal Not Available [facility] [place] [facility] [address] [facility], [place], [address], 2022 13:42:06 07/19/20 22 2022 LIPID PANEL , STAND DANNA triglyceride s 57 mg/dL <150 normal Not Available [facility] [place] [facility] [address] [facility], [place], [address], 2022 13:42:06 07/19/20 22 2022 LIPID PANEL , STAND DANNA LDL-choleste rol 80 mg/dL _(declan c) normal Refer ence range : <100 Jayden able range <100 mg/dL for prima ry preve ntion ; <70 mg/dL for patie nts with CHD or diabe tic patie nts with > or = 2 CHD risk facto rs. LDL-C is now calcu lated using the Zeinab n-Hop kins eliudu david n, which is a valid ated novel david mchugh actrey than the Fried sharon equat ion in the estim ation of LDL-C . Zeinab conroy SS et al. PERRY. 2013; 310(1 9): 2061- 2068 (http ://ed ucati on.Qu estDi Loylapos tics. com/f aq/FA Q164) Not Available [facility] [place] [facility] [address] [facility], [place], [address], 2022 13:42:06 07/19/20 22 2022 LIPID PANEL , STAND DANNA chol/HDLC ratio 2.0 (calc ) <5.0 normal Not Available [facility] [address] [place], [address], 2022 13:42:06 07/19/20 22 2022 LIPID PANEL , STAND DANNA non HDL cholesterol 93 mg/dL _(declan c) <130 normal For patie nts with diabe hattie plus 1 major ASCVD risk facto r, treat ing to a non-H DL-C goal of <100 mg/dL (LDL- C of <70 mg/dL ) is consi dered a thera peuti c optio n. Not Available [facility] [address] [facility] [place], [address], 2022 13:42:06 07/19/20 22 2022 COMPR EHENS BURT METAB OLIC PANEL glucose 93 mg/dL 65-99 normal Fasti ng refer ence inter abdias Not Available [facility] [address] [facility] [place], [address], 2022 13:42:07 07/19/20 22 2022 COMPR EHENS BURT METAB OLIC PANEL urea nitrogen (BUN) 11 mg/dL 7-25 normal Not Available [facility] [address] [facility] [place], [address], 2022 13:42:07 07/19/20 22 2022 COMPR EHENS BURT METAB OLIC PANEL creatinine 0.70 mg/dL 0.60-0 .95 normal Not Available [facility] [address] [facility] [place], [address], 2022 13:42:07 07/19/20 22 2022 COMPR EHENS BURT METAB OLIC PANEL eGFR 87 mL/mi n/1.7 3m2 > or = 60 normal The eGFR is based on the CKD-E PI 2020 equat ion. To calcu late the new eGFR from a previ ous Creat inine or Cysta tin C resul t, go to https ://adelfo oliveros.maty barragan.o christiano/pete arita s/ kdoqi /gfr% 5Fcal culat or Not Available [facility] [place] [facility] [address] [facility] [place], [address], 2022 13:42:07 07/19/20 22 2022 COMPR EHENS BURT METAB OLIC PANEL BUN/creatini ne ratio NOT APPLIC ABLE (calc ) 6-22 Not Available [facility] [place] [facility] [address] [facility] [place], [address], 2022 13:42:07 07/19/20 22 2022 COMPR EHENS BURT METAB OLIC PANEL sodium 135 mmol/ L 135-14 6 normal Not Available [facility] [place] [facility] [address] [facility] [place], [address], 2022 13:42:07 07/19/20 22 2022 COMPR EHENS BURT METAB OLIC PANEL potassium 5.1 mmol/ L 3.5-5. 3 normal Not Available [facility] [place] [facility] [address] [facility] [place], [address], 2022 13:42:07 07/19/20 22 2022 COMPR EHENS BURT METAB OLIC PANEL chloride 95 mmol/ L 98-110 low Not Available [facility] [place] [facility] [address] [facility] [place], [address], 2022 13:42:07 07/19/20 22 2022 COMPR EHENS BURT METAB OLIC PANEL carbon dioxide 35 mmol/ L 20-32 high Not Available [facility] [place] [facility] [address] [facility] [place], [address], 2022 13:42:07 07/19/20 22 2022 COMPR EHENS BURT METAB OLIC PANEL calcium 10.0 mg/dL 8.6-10 .4 normal Not Available [facility] [place] [facility] [address] [place], [address], 2022 13:42:07 07/19/20 22 2022 COMPR EHENS BURT METAB OLIC PANEL protein, total 6.8 g/dL 6.1-8. 1 normal Not Available [facility] [address] [place], [address], 2022 13:42:07 07/19/20 22 2022 COMPR EHENS BURT METAB OLIC PANEL albumin 4.6 g/dL 3.6-5. 1 normal Not Available [facility] [address] [place], [address], 2022 13:42:07 07/19/20 22 2022 COMPR EHENS BURT METAB OLIC PANEL globulin 2.2 g/dL_ (calc ) 1.9-3. 7 normal Not Available [facility] [place] [facility] [address] [place], [address], 2022 13:42:07 07/19/20 22 2022 COMPR EHENS BURT METAB OLIC PANEL albumin/glob ulin ratio 2.1 (calc ) 1.0-2. 5 normal Not Available [facility] [address] [place], [address], 2022 13:42:07 07/19/20 22 2022 COMPR EHENS BURT METAB OLIC PANEL bilirubin, total 0.9 mg/dL 0.2-1. 2 normal Not Available [facility] [address] [place], [address], 2022 13:42:07 07/19/20 22 2022 COMPR EHENS BURT METAB OLIC PANEL alkaline phosphatase 60 U/L 37-153 normal Not Available [facility] [address] [place], [address], 2022 13:42:07 07/19/20 22 2022 COMPR EHENS BURT METAB OLIC PANEL AST 24 U/L 10-35 normal Not Available [facility] [address] [facility] [place], [address], 2022 13:42:07 07/19/20 22 2022 COMPR EHENS BURT METAB OLIC PANEL ALT 16 U/L 6-29 normal Not Available [facility] [address] [facility] [place], [address], 2022 13:42:07 07/19/20 22 2022 TSH TSH 1.22 mIU/L 0.40-4 .50 normal Not Available [facility] [address] [facility] [place], [address], 2022 13:42:07 07/19/20 22 2022 CBC (INCL UDES DIFF/ PLT) white blood cell count 4.6 thous and/u L 3.8-10 .8 normal Not Available [facility] [address] [place], [address], 2022 13:42:08 07/19/20 22 2022 CBC (INCL UDES DIFF/ PLT) red blood cell count 3.94 chaz on/uL 3.80-5 .10 normal Not Available [facility] [address] [place], [address], 2022 13:42:08 07/19/20 22 2022 CBC (INCL UDES DIFF/ PLT) hemoglobin 11.9 g/dL 11.7-1 5.5 normal Not Available [facility] [address] [place], [address], 2022 13:42:08 07/19/20 22 2022 CBC (INCL UDES DIFF/ PLT) hematocrit 35.8 % 35.0-4 5.0 normal Not Available [facility] [address] [place], [address], 2022 13:42:08 07/19/20 22 2022 CBC (INCL UDES DIFF/ PLT) MCV 90.9 fL 80.0-1 00.0 normal Not Available [facility] [address] [place], [address], 2022 13:42:08 07/19/20 22 2022 CBC (INCL UDES DIFF/ PLT) MCH 30.2 pg 27.0-3 3.0 normal Not Available [facility] [address] [place], [address], 2022 13:42:08 07/19/20 22 2022 CBC (INCL UDES DIFF/ PLT) MCHC 33.2 g/dL 32.0-3 6.0 normal Not Available [facility] [address] [place], [address], 2022 13:42:08 07/19/20 22 2022 CBC (INCL UDES DIFF/ PLT) RDW 11.8 % 11.0-1 5.0 normal Not Available [facility] [place] [facility] [address], [place], [address], 2022 13:42:08 07/19/20 22 2022 CBC (INCL UDES DIFF/ PLT) platelet count 257 thous and/u L 140-40 0 normal Not Available [facility] [address], [place], [address], 2022 13:42:08 07/19/20 22 2022 CBC (INCL UDES DIFF/ PLT) MPV 10.5 fL 7.5-12 .5 normal Not Available [facility] [address] [facility] [address], [place], [address], 2022 13:42:08 07/19/20 22 2022 CBC (INCL UDES DIFF/ PLT) absolute neutrophils 2489 cells /uL 1500-7 800 normal Not Available [facility] [address] [facility] [address], [place], [address], 2022 13:42:08 07/19/20 22 2022 CBC (INCL UDES DIFF/ PLT) absolute lymphocytes 1550 cells /uL 850-39 00 normal Not Available [facility] [address], [place], [address], 2022 13:42:08 07/19/20 22 2022 CBC (INCL UDES DIFF/ PLT) absolute monocytes 460 cells /uL 200-95 0 normal Not Available [facility] [address], [place], [address], 2022 13:42:08 07/19/20 22 2022 CBC (INCL UDES DIFF/ PLT) absolute eosinophils 69 cells /uL 15-500 normal Not Available [facility] [address], [place], [address], 2022 13:42:08 07/19/20 22 2022 CBC (INCL UDES DIFF/ PLT) absolute basophils 32 cells /uL 0-200 normal Not Available [facility] [place] [facility] [address] [facility], [place], [address], 2022 13:42:08 07/19/20 22 2022 CBC (INCL UDES DIFF/ PLT) neutrophils 54.1 % normal Not Available [facility] [place] [facility] [address] [facility] [place], [address], 2022 13:42:08 07/19/20 22 2022 CBC (INCL UDES DIFF/ PLT) lymphocytes 33.7 % normal Not Available [facility] [place] [facility] [address] [facility] [place], [address], 2022 13:42:08 07/19/20 22 2022 CBC (INCL UDES DIFF/ PLT) monocytes 10.0 % normal Not Available [facility] [place] [facility] [address] [facility] [place], [address], 2022 13:42:08 07/19/20 22 2022 CBC (INCL UDES DIFF/ PLT) eosinophils 1.5 % normal Not Available [facility] [place] [facility] [address] [facility] [place], [address], 2022 13:42:08 07/19/20 22 2022 CBC (INCL UDES DIFF/ PLT) basophils 0.7 % normal Not Available [facility] [place] [facility] [address] [facility] [place], [address], 2022 13:42:08 07/19/20 22 2022 HEPAT ITIS C AB W/REF L TO HCV RNA, QN, PCR hepatitis C antibody NON-RE ACTIVE non-re active normal Not Available [facility] [place] [facility] [address] [facility], [place], [address], 2022 13:42:08 07/19/20 22 2022 HEPAT ITIS C AB W/REF L TO HCV RNA, QN, PCR index 0.03 <1.00 normal HCV antib ana luisa was non-r eacti ve. There is no labor atory evide nce of HCV infec tion. In most cases , no furth er actio n is requi red. Howev er, if recen t HCV expos ure is suspe cted, a test for HCV RNA (test code 46145 ) is sugge sted. For addit ional infor jonathan conroy pleleti e refer to http: //[facility] kofi conroy.que stdia gnost ics.c om/fa q/FAQ 22v1 (This link is being provi ded for infor jonathan caputo/ educa vu l purpo ses only. ) Not Available [facility] [place] [facility] [address] [facility], [place], [address], 2022 13:42:08 01/29/20 21 01/28/2021 MAMMO , scree benjamin, digit al, bilat eral [facility] [address] [place] [address] Phone: Fax: Name: NITHYA OLSON Exam Date: 01/29/20 21 : 1939 Age 80 Gender : F Access ion: [id number] Physic ever: ALLISO N, KEITH Powell Facili ty: [facility] Facili ty HSV: Outpat ient Exam: SCREEN MAMMO W CAD BILAT MAMMOG KRISTIAN SCREEN ING BILATE RAL HISTOR Y: Routin e screen ing exam COMPAR DORA: January 23, 2020 FINDIN GS: Standa rd views were obtain ed. The breast parenc hyma is hetero geneou sly dense which can limit the sensit ivity of mammog jeromy. Benign -appea ring calcif icatio ns are presen t. No mass, suspic ious calcif icatio ns or [place] ectura l distor tion is presen t. IMPRES LAUREN: No mammog raphic eviden ce of malign darius. BI-RAD S 2: Benign RECOMM ENDATI ON: Annual mammog jeromy CAD was utiliz ed during interp retati on. The patien t will be sent a letter from the mammog jeromy depart ment with their mammog jeromy findin gs. Dictat ed By: KEITH MORLEY Transc ribed By: KEITH MORLEY Transc ribed On: 01/29/20 12:39 PM Electr onical ly signed by: KEITH MORLEY 01/29/20 Thank you for referr ing NITHYA OLSON to [facility] Legall y authen ticate d by POPE KEITH Gee DO 01-28 12:39: 50 CC'ed Logic: Orderi ng Provid er: ARACELY Powell CC Provid er: ARACELY Powell Attend ing Provid er: ARACELY Powell Referr ing Provid er: ARACELY Powell Admitt ing Provid er: ARACELY traore[address] [place] [address] (Radiology) [address] [place] [address] [place], [address], 07/27/2021 09:40:45 09/24/19 22 09/24/2021 US ABD [facility] [address] [place] [address] [place] [address] Phone: Fax: Name: NITHYA OLSON Exam Date: 022 : 1939 Age 81 Gender : F Access ion: [id number] Physic ever: KEITH RICKS Facili ty: [facility] Facili ty HSV: Outpat ient Exam: US ABD ULTRAS OUND ABDOME N HISTOR Y: Nausea , abdomi nal pain FINDIN GS: There is a coarse bren echote xture of the liver which can be seen in hepato cellul ar diseas e. There is no discre te liver mass. Spleen has a normal sonogr aphic appear ance. There is a 2 mm echoge mack struct ure in the gallbl adder, which may repres ent a polyp or stone. There is no gallbl adder wall thicke benjamin or perich olecys tic fluid. There was a positi ve sonogr aphic Rao 's sign during the exam. No biliar y ductal dilata tion is identi fied. Kidney s show no eviden ce of mass or obstru ction. Pancre as is not well visual ized. IVC and aorta are grossl y unrema rkable . There is no obviou s fluid collec tion. IMPRES LAUREN: Polyp versus stone in the gallbl adder measur ing up to 2 mm. Images review ed, interp reted, and dictat ed by Dr. Keith Morley. Transc ribed by Leatha conroy PA-C Dictat ed By: KEITH MORLEY Transc ribed By: KEITH MORLEY Transc ribed On: 10:54 AM Electr onical ly signed by: KEITH MORLEY Thank you for referr NITHYA Damian to [facility]. Legall y authen ticate d by POPE KEITH Gee DO 09-24 10:54: 01 CC'ed Logic: Orderi ng Provid er: ARACELY Powell CC Provid er: ARACELY Powell Attend ing Provid er: ARACELY Powell Referr ing Provid er: ARACELY Powell Admitt ing Provid er: ARACELY Powell [facility] (Radiology) [address] [place], [address], 09/27/2021 14:48:39 10/02/19 22 10/01/2021 CT, abdom en + pelvi s, w/ contr ast [facility] [address] [place] [address] Phone: Fax: Name: NITHYA OLSON Exam Date: 10/02/19 22 : 1939 Age 81 Gender : F Access ion: [id number] Physic ever: ALLISO N, KEITH A Facili ty: [facility] Facili ty HSV: Outpat ient Exam: CT ABD/PE LVIS WITH IV CONTRA ST CT ABDOME N AND PELVIS WITHOU T AND WITH CONTRA ST TECHNI QUE: Oral and IV contra st enhanc ed exam HISTOR Y: Right lower quadra nt pain, umbili declan pain COMPAR DORA: None . FINDIN GS: Abdome n: Lung bases are clear. There is gaseou s disten tion of the stomac h. The solid organs have an unrema rkable appear ance. There are air-fl uid levels within the cecum with small air-fl uid levels within small bowel loops otherw ise the small bowel is nondil ated. Findin gs may repres ent ileus. Contra st is noted to reach the colon. There is no defini te eviden ce of bowel obstru ction. No free air or free fluid is seen. Pelvis : No fluid collec tions or inflam matory change s are presen t. There is thicke benjamin of the anus. The urinar y bladde r demons trates circum ferent ial thicke benjamin likely due to nondis tentio n. There is postop erativ e change s from prior lumbar spine fusion . There is no acute bony abnorm ality. The append ix is not visual ized, there are no second rosana signs of append icitis . IMPRES LAUREN: Conste llatio n of findin gs probab ly repres enting mild underl laura ileus withou t bowel obstru ction. Append ix not visual ized, nose second rosana signs of append icitis . Signif icant circum ferent ial thicke benjamin of the anus may repres ent chroni c inflam matory proces s or underl laura malign darius. Correl ate with direct visual izatio n. This study was perfor med using [employer] techni ques to achiev e radiat ion exposu re as low as reason ably Images review ed, interp reted, and dictat ed by Dr. Nasreen Cullen . Transc ribed by Brett Alexandre PA-C Dictat ed By: MARU CULLEN Transc ribed By: MARU CULLEN Transc ribed On: 10/02/19 11:33 AM Electr onical ly signed by: MARU CULLEN 10/02/19 Thank you for referr NITHYA Damian to [facility]. Legall y authen ticate d by MARU CULLEN IVO 10-01 11:33: 53 CC'ed Logic: Orderi ng Provid er: ARACELY Powell CC Provid er: ARACELY Powell Attend ing Provid er: ARACELY Powell Referr ing Provid er: ARACELY Poewll Admitt ing Provid er: ARACELY Powell [id number] [place] [address] (Radiology) [address] [place], [address], 10/04/2021 10:24:53 02/02/2002/01/2022 MAMMO , scree benjamin, digit al, bilat eral [facility] [address] [facility] [place] [address] Phone: Fax: Name: NITHYA OLSON Exam Date: 02/02/20 : 1939 Age 81 Gender : F Access ion: [id number] Physic ever: KEITH RICKS Facili ty: [facility] Facili ty HSV: Outpat ient Exam: SCREEN MAMMO W CAD BILAT MAMMOG KRISTIAN SCREEN ING BILATE RAL HISTOR Y: Routin e screen ing exam COMPAR DORA: January 28, 2021 TECHNI QUE: Standa rd digita l 2-D views with 3-D tomosy nthesi s DENSIT Y: Breast s are hetero geneou sly dense which can obscur e masses . FINDIN GS: Benign calcif icatio ns. Scatte red areas of focal asymme try are noted. No new suspic ious mass, suspic ious calcif icatio ns or louisa ectura l distor tion is presen t. IMPRES LAUREN: No mammog raphic eviden ce of malign darius BI-RAD S 2: Benign findin g RECOMM ENDATI ON: Annual mammog jeromy CAD was utiliz ed during interp retati on. The patien t will be sent a letter from the mammog jeromy depart ment with their mammog jeromy result s. Dictat ed By: MARU CULLEN Transc ribed By: MARU CULLEN Transc ribed On: 02/02/20 10:16 AM Electr onical ly signed by: MARU CULLEN 02/02/20 Thank you for referr NITHYA Damian to [facility]. Legall y authen ticate d by SUBHASH MAHONEY 02-01 10:16: 10 CC'ed Logic: Orderi ng Provid er: ARACELY Powell CC Provid er: ARACELY Powell Attend ing Provid er: ARACELY Powell Referr ing Provid er: ARACELY Powell Admitt ing Provid er: ARACELY traore[address] [place] [address] (Radiology) [address] [place] [address], [place], [address], 07/28/2022 09:44:43 Result Notes None recorded. 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 6 10:00:44 Constipatio n due to spasm of colon 643526631 Active Kathleen Vaca MD [address], [address], [facility] 6 10:00:44 Spinal stenosis 56261257 Active had surgery, December 2012 Kathleen Vaca MD [address], [address], [facility] 6 10:00:44 Hyperlipide krystina [id number] Fernando Vaca MD [address] [place] [address], [facility] 6 18:54:02 Benign essential hypertensio n 5437012 Fernando Vaca MD [address] [place] [address], [facility] 6 18:54:02 Acute sciatica 114545002 Fernando Vaca MD [address] [place] [address], [place] [facility] 6 10:00:44 Disorder of carotid artery 734415183 Fernando Vaca MD [address] [place] [address], [facility] 6 10:00:44 Vertigo 774896498 Fernando Vaca MD [address] [place] [address], [facility] 6 10:00:44 Low back pain 817486434 Fernando Vaca MD [address] [place] [address], [facility] 6 10:00:44 Pain of hip region 59741475 Fernando Vaca MD [address] [place] [address], [facility] 6 10:00:44 Deficiency anemias 270986489 Fernando Vaca MD [address] [place] [address], [facility] 6 18:54:02 Gastroesoph ageal reflux disease 964702370 Fernando Vaca MD [address] [place] [address], [facility] 6 18:54:02 Injury of ankle 141637032 Active Kathleen Vaca MD [address] [place] [address], [facility] 6 10:00:44 Atypical chest pain 868785826 Active Kathleen Vaca MD [address] [place] [address], [facility] 6 10:00:44 Upper respiratory infection 81231451 Active Kathleen Vaca MD [address] [place] [address], [facility] 6 10:00:44 Cough 94970724 Active Kathleen Vaca MD [address] [place] [address], [facility] 6 10:00:44 Neoplasm of skin 640847308 Active Kathleen Vaca MD [address] [place] [address], [facility] 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 6 18:54:02 Osteoporosi s 06595983 Active [facility] 6 16:38:43 Problem Notes None recorded. Procedures Surgical History Date Name Laterality Status Provider Name and Address Organization Details Recorded Time 09/13/19 18 Carpal tunnel surgery completed Kathleen Vaca MD [address] [place] [address], [facility] 12/12/2017 09:51:03 06/03/20 15 Back Surgery completed Kathleen Vaca MD 2016 [facility], [place], [address], [facility] 06/19/2015 14:40:44 12/30/19 13 Other completed [facility] 04/17/2015 15:16:36 08/31/19 13 Other completed Kathleen Vaca MD [address] [place] [address], [place], [address], [facility] 12/06/2016 10:33:42 04/20/20 09 Colonoscopy completed Kathleen Vaca MD [address] [address], [place], [address], [facility] 06/10/2016 10:49:15 07/31/19 04 Other completed [facility] 04/17/2015 15:16:36 07/31/19 04 Other completed [facility] 04/17/2015 15:16:36 07/31/19 03 Hysterectomy completed [facility] 04/17/2015 15:16:36 04/30/19 98 Eye Surgery completed [facility] 04/17/2015 15:16:36 07/31/18 98 Eye Surgery completed Kathleen Vaca MD 2016 [facility], [place], [address], [facility] 12/01/2015 10:43:03 07/31/18 78 Other completed Kathleen Vaca MD 2016 [facility], [place], [address], [facility] 04/17/2015 16:17:49 07/31/18 59 Appendectomy completed [facility] 04/17/2015 15:16:36 Cataract Surgery completed Kathleen Vaca MD 2017 [facility], [address], [place], [address], [facility] 12/01/2015 10:43:03 Imaging Results None recorded. Procedure Notes None recorded. Medical Equipment None Reported. Allergies Allergen ID Allergen Name Allergen Category Reaction Reaction Severity Criticality Documentation Date Start Date Code Code System Note Provider Name and Address Organization Details Recorded Time penicilli n V Not available Not available Not available Not available 04/17/2015 7984 RxNorm Alexandra [facility] 5 15:16:36 Biaxin medicatio n Not available Not available Not available 04/17/201572996 9 RxNorm [facility] 5 15:16:36 Medications Name Sig Start Date Stop Date Status Note LastModified by Organization Details LastModified Time doxycycli ne hyclate 100 mg capsule TAKE 1 CAPSULE 2 TIMES EACH DAY WITH MEALS FOR 10 DAYS 01/15 completed Not Available Not Available Not Available tizanidin e 2 mg tablet TAKE 1 TABLET BY MOUTH ONCE DAILY IN THE EVENING PRN 07/27 completed Not Available Not Available Not Available cetirizin e 10 mg tablet Take 1 tablet every day by oral route as needed. active Not Available Not Available No t Available ofloxacin 0.3 % eye drops active Not Available Not Available Not Available hydrocodo ne 5 mg-acetam inophen 325 mg tablet 12/12 completed Not Available Not Available Not Available ondansetr on HCl 8 mg tablet Take 1 tablet every 8 hours by oral route as needed for 2 days. 04/28 completed Not Available Not Available Not Available promethaz ine 12.5 mg tablet TAKE ONE TO TWO TABLETS BY MOUTH EVERY 6 HOURS NEEDED FOR NAUSEA 12/06 completed Not Available Not Available Not Available alendrona te 70 mg tablet Take 1 tablet every week by oral route as directed . 04/26 completed Not Available Not Available Not Available clindamyc in HCl 150 mg capsule 04/16 completed Not Available Not Available Not Available promethaz ine 6.25 mg-codein e 10 mg/5 mL syrup TAKE ONE TEASPOON FUL (5 ML) EVERY 6 HOURS NEEDED FOR SEVERE COUGH 01/15 completed Not Available Not Available Not Available ciproflox acin 250 mg tablet Take 1 tablet every 12 hours by oral route. 08/30 completed Not Available Not Available Not Available omeprazol e 40 mg capsule,d elayed release TAKE 1 CAPSULE BY MOUTH EVERY DAY IN THE MORNING active Not Available Not Available No t Available tramadol 50 mg tablet 04/09 completed Not Available Not Available Not Available oxycodone -acetamin ophen 5 mg-325 mg tablet 06/14 completed Not Available Not Available Not Available ceftriaxo ne 1 gram solution for injection Take 0.5 mg by injectio n route. 01/15 completed Rocephin Not Available Not Available Not Available pravastat in 10 mg tablet TAKE 1 TABLET BY MOUTH EVERY DAY active Not Available Not Available No t Available meclizine 25 mg tablet TAKE 1 TABLET 2 TIMES A DAY NEEDED. active Not Available Not Available No t Available benzonata te 100 mg capsule Take 1 capsule 3 times a day by oral route as needed. 2015 active Not Available Not Available Not Avai lable cephalexi n 500 mg capsule active Not Available Not Available Not Available lisinopri l 10 mg tablet TAKE 1 TABLET BY MOUTH EVERY DAY active Not Available Not Available No t Available Citrucel 500 mg tablet Take 2 tablets every day by oral route. active Not Available Not Available No t Available gabapenti n 300 mg capsule TAKE 1 CAPSULE BY MOUTH TWICE A DAY NEEDED FOR 90 DAYS active Not Available Not Available No t Available omeprazol e 20 mg capsule,d elayed release TAKE 1 CAPSULE 1 TIME EACH DAY NEEDED 07/17 completed Not Available Not Available Not Available cyanocoba randy (vit B-12) 1,000 mcg sublingua l tablet Place 1 tablet every day by sublingu al route. 07/16 completed Not Available Not Available Not Available dexametha sone sodium phosphate 4 mg/mL injection solution Inject 1 mL by intramus cular route. 01/21 completed Not Available Not Available Not Available lisinopri l 10 mg-hydroc hlorothia zide 12.5 mg tablet TAKE 1 TABLET 1 TIME EACH DAY 07/28 completed Not Available Not Available Not Available polyethyl derick glycol 3350 17 gram/dose oral powder Take 17 g every day by oral route in the evening. active as needed Not Available Not Available Not Available methylpre dnisolone 4 mg tablets in a dose pack TAKE ACCORDIN G TO PACKAGE INSTRUCT IONS 01/21 completed Not Available Not Available Not Available cefdinir 300 mg capsule Take 1 capsule every 12 hours by oral route for 3 days. 12/13 completed Not Available Not Available Not Available fluticaso ne propionat e 50 mcg/actua tion nasal spray,jorge pension SHAKE LIQUID AND USE 1 SPRAY IN EACH NOSTRIL EVERY DAY active Not Available Not Available No t Available dicyclomi ne 10 mg capsule Take 1 capsule 3 times a day by oral route as needed. 05/04 completed Not Available Not Available Not Available naproxen 500 mg tablet TAKE ONE TABLET TWICE DAILY NEEDED FOR PAIN 04/26 completed Not Available Not Available Not Available Asprin Ec Low Dose 81 mg tablet,de layed release Take 1 tablet every week by oral route. active Not Available Not Available No t Available Senokot-S 8.6 mg-50 mg tablet 1-2 daily PRN 02/07 completed Not Available Not Available Not Available chlorhexi dine gluconate 0.12 % mouthwash active Not Available Not Available No t Available naproxen as needed 06/09 completed Not Available Not Available Not Available Iron (ferrous sulfate) active Not Available Not Available Not Available Miralax every night active Not Available Not Available No t Available Calcium 600 + D(3) 600 mg-10 mcg (400 unit) tablet Take 1 tablet twice a day by oral route. active Not Available Not Available No t Available diclofena c 1 % topical gel APPLY 2 GRAMS TO THE AFFECTED AREA(S) BY TOPICAL ROUTE 4 TIMES PER DAY PRN active Not Available Not Available No t Available hesperidi n methyl chalcone- diosmin 100 mg-900 mg tablet takes one daily OTC active for the internal hemorrho ids and varicose veins Not Available Not Available Not Available loratadin e 10 mg capsule Take 1 capsule every day by oral route. 01/15 completed Not Available Not Available Not Available Vitals Date Recorded Body height Body temperature Oxygen saturation Oxygen saturation in Arterial blood by Pulse oximetry Heart rate Body mass index (BMI) Body weight Systolic blood pressure Diastolic blood pressure Provider Name and Address Organization Details Last Updated DateTime 2 167.64 cm 98.2 [degF] 95 % 95 % 70 /min 20.8 kg/m2 28952.4 2 g 135 mm[Hg] 65 mm[Hg] [facility] 2 10:07:45 Date Recorded Body height Body mass index (BMI) Body weight Heart rate Oxygen saturation Oxygen saturation in Arterial blood by Pulse oximetry Body temperature Systolic blood pressure Diastolic blood pressure Provider Name and Address Organization Details Last Updated DateTime 1 167.64 cm 20.6 kg/m2 71323.3 3 g 72 /min 98 % 98 % 98.4 [degF] 129 mm[Hg] 71 mm[Hg] [facility] 1 10:31:22 Date Recorded Body height Body mass index (BMI) Body weight Heart rate Oxygen saturation Oxygen saturation in Arterial blood by Pulse oximetry Body temperature Systolic blood pressure Diastolic blood pressure Provider Name and Address Organization Details Last Updated DateTime 2 167.64 cm 20.2 kg/m2 14903.0 5 g 67 /min 97 % 97 % 98.2 [degF] 124 mm[Hg] 73 mm[Hg] [facility] 2 10:07:52 Date Recorded Body height Body mass index (BMI) Body weight Heart rate Oxygen saturation Oxygen saturation in Arterial blood by Pulse oximetry Body temperature Systolic blood pressure Diastolic blood pressure Provider Name and Address Organization Details Last Updated DateTime 1 167.64 cm 20.9 kg/m2 21205.5 2 g 77 /min 98 % 98 % 97.7 [degF] 137 mm[Hg] 86 mm[Hg] [facility] 1 09:10:01 Date Recorded Body height Body mass index (BMI) Body weight Heart rate Oxygen saturation Oxygen saturation in Arterial blood by Pulse oximetry Body temperature Systolic blood pressure Diastolic blood pressure Provider Name and Address Organization Details Last Updated DateTime 2 167.64 cm 20.4 kg/m2 16355.4 4 g 77 /min 97 % 97 % 97.2 [degF] 130 mm[Hg] 78 mm[Hg] [facility] 2 09:02:47 Social History Question Answer Notes LastModified by Organizat ion Details LastModified Time Tobacco Smoking Status Never Smoker Alexandra [facility] 04/17/2015 15:16:36 Do You Have An Advance Directive? Yes Information not available 04/17/2015 What Is Your Level Of Caffeine Consumption? Moderate Information not available 04/17/2015 Diabetes No Information no t available 04/17/2015 What Type Of Diet Are You Following? REGULAR Information not available 12/29/2018 What Is The Highest Grade Or Level Of School You Have Completed Or The Highest Degree You Have Received? [id number] Information not available 07/28/2022 High Blood Pressure Yes Information not available 04/17/2015 High Cholesterol Yes Informat ion not available 04/17/2015 Marital Status Informatio n not available 04/17/2015 What Was The Date Of Your Most Recent Tobacco Screening? 07/28/2022 Information not available 07/28/2022 How Many Children Do You Have? 1 Information not available 04/17/2015 What Is Your Relationship Status? Information not available 12/14/2020 How Much Tobacco Do You Smoke? No Information not available 12/29/2018 General Stress Level Low Information not available 04/17/2015 Sex: Unknown Functional Status Question Answer Note LastModified by Organizat ion Details LastModified Time What is your level of alcohol consumption? 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 Information not available 07/28/2022 What is your exercise level? Moderate Information not available 04/17/2015 Mental Status None recorded. Family History Relationship Description Onset Age of this Age Resolved Age Notes LastModified by Organization Details LastModified Time Mother Old-age 95 Not available 12/01/2015 10:02:55 Father Heart disease 77 Not available 2015 10:02:55 Brother Leukemia 78 one brothe r has leukem ia, and the other has a pace maker 87 Not available 12/01/2015 10:02:55 Sister Irregular heart beat 81 on a pace maker Not available 12/01/2015 10:02:55 Medical History Condition Response Coronary Artery Disease N Gout N Blood Diseases N Kidney Stones N Hyperthyroidism N Depression N COPD N Hypothyroidism N Developmental or Behavioral Disorders N Eczema, Hives or other skin conditions N Anxiety Disorder N Muscle, Joint, or Bone Problems N Vision or Eye Problems Y Arthritis Y Serious Illness or Injuries N Congenital Anomalies N Cancer N Stroke N Bladder or Kidney Problems N Hospital Admission other than N High Cholesterol Y Liver Disease N Fibromyalgia N Kidney Disease N Heart Problems N Ear or Hearing Problems N ADD or ADHD N Thyroid Problems N Skin Problems N Anemia Y Constipation Y Diabetes N Bedwetting N Seizures/Epilepsy N Tuberculosis N Diverticulitis N Asthma N Allergies Y GERD/Reflux N Heart Disease N Pulmonary Embolism N Hypertension Y Chicken Pox Y Osteoporosis N Gynecological HistoryNo gynecological history recorded. Obstetrics History GPAL:G 0 P 0 0 0 0 Immunizations Vaccine Type Date Status Note Provider Nam e and Address Organization Details Recorded Time pneumococcal polysaccharide PPV23 7 completed Not Available [facility] 08/17/2019 02:12:07 Influenza, high-dose, trivalent, PF 8 completed Not Available [facility] 08/17/2019 02:12:13 Influenza, high-dose, trivalent, PF 9 completed Not Available [facility] 08/17/2019 02:12:11 Influenza, high-dose, quadrivalent, PF 0 completed Not Available [facility] 05/01/2020 11:48:19 Influenza, high-dose, quadrivalent, PF 1 completed Not Available [facility] 04/08/2021 21:02:18 Pneumococcal conjugate PCV20, polysaccharide UHZ532 conjugate, adjuvant, PF 2 completed Kathleen Vaca MD [address] [facility], [place], [address], [facility] 07/31/2022 20:02:19 pneumococcal polysaccharide PPV23 2 completed [facility] 04/17/2015 15:16:36 Tdap 4 completed [facility] 04/17/2015 15:16:36 Pneumococcal conjugate PCV 13 5 completed Not Available [facility] 08/31/2019 02:12:32 Influenza, high-dose, trivalent, PF 5 completed Not Available [facility] 08/31/2019 02:12:32 Influenza, high-dose, trivalent, PF 6 completed Not Available [facility] 08/31/2019 02:12:33 Influenza, high-dose, trivalent, PF 7 completed Not Available [facility] 08/31/2019 02:12:33 COVID-19, mRNA, LNP-S, PF, 100 mcg/0.5mL dose or 50 mcg/0.25mL dose 1 completed [facility] 12/14/2020 14:10:07 COVID-19, mRNA, LNP-S, PF, 100 mcg/0.5mL dose or 50 mcg/0.25mL dose 1 completed [facility] 12/14/2020 14:10:11 COVID-19, mRNA, LNP-S, PF, 100 mcg/0.5mL dose or 50 mcg/0.25mL dose 1 completed Kathleen Vaca MD [address] [facility], [address], [address], [facility] 07/27/2021 09:41:18 Influenza, high-dose, quadrivalent, PF 2 completed Kylah Juan [facility] 07/28/2022 09:08:36 Past Encounters Encounter ID Performer Location Encounter Start Date Encounter Closed Date Diagnosis/Indication Diagnosis SNOMED-CT Code Diagnosis ICD10 Code Diagnosis Note [id number] Kathleen Vaca MD [facility] [address] [address] 04/17/2015 14:41:23 04/17/2015 17:44:02 Acute sciatica [id number] Benign ess ential hypertension 5273688 Hyperlipidemia 99917042 Disorder o f carotid artery 173882364 Vertigo [id number] Kathleen Vaca MD [address] [address] 7 05/19/2015 09:21:43 05/22/2015 17:37:10 Benign essential hypertension 0028763 I10 Acute sciatica 596833615 M54.31 [id number] Kathleen Vaca MD [address] [address] 7 06/19/2015 13:39:13 06/30/2015 17:09:21 Deficiency anemias 659431982 D53.9 Gastroesop hageal reflux disease 693160001 K21.9 [id number] Kathleen Vaca MD [address] [address] 7 07/16/2015 13:38:07 07/16/2015 15:42:58 Deficiency anemias 855915294 D51.9 Low back pain 626497602 M54.5 [id number] Kathleen Vaca MD [address] [address] 7 09/07/2015 14:31:48 09/16/2015 08:44:20 Injury of ankle 539529670 S96.901A Gastroesop hageal reflux disease 787439623 K21.9 Atypical chest pain 1025 56994 R07.89 [id number] Kathleen Vaca MD [facility] [address] [address] 7 11/03/2015 10:05:59 11/03/2015 16:29:02 Upper respiratory infection 81751033 J06.9 Cough 04670575 R05 [id number] Kathleen Vaca MD [facility] [address] [address] 12/01/2015 08:45:35 12/02/2015 08:50:28 Adult health examination 456423377 Z00.01 Benign ess ential hypertension 0109422 I10 Deficiency anemias 05100 3007 D51.9 Gastroesop hageal reflux disease 758568138 K21.9 Hyperlipidemia 90909279 E78.5 Neoplasm of skin 7101841 04 D49.2 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 Screening mammography 24 399085 Z12.31 Screening for osteoporosis 846497477 Z13.820 Depression screening 171 440782 Z13.89 [id number] Kathleen Vaca MD [facility] [address] [address] 7 04/26/2016 10:30:04 04/26/2016 13:24:02 Abdominal pain 11096642 R10.9 Ultrasound scan abnormal 074137325 R93.8 Nausea 290789379 R11.0 [id number] Kathleen Vaca MD [address] [address] 7 05/17/2016 10:05:45 05/18/2016 09:24:12 Chronic constipation 409351321 K59.00 Abscess of skin and/or subcutaneous tissue 52985129 L02.91 Gastroesop hageal reflux disease 547880589 K21.9 Benign ess ential hypertension 8054333 I10 Hyperlipidemia 44606425 E78.5 [id number] Kathleen Vaca MD [facility] [address] [address] 7 12/06/2016 08:25:43 12/06/2016 15:58:22 Adult health examination 781623305 Z00.01 Active or passive immunization 921947994 Z23 Essential hypertension 56711496 I10 Hyperlipidemia 83853691 E78.5 Trigger fi nger of left hand 0062193478 7786077 M65.30 Pain in finger 26219953 M79.645 Screening mammography 24 137281 Z12.31 [id number] Kathleen Vaca MD [address] [address] 7 05/09/2017 10:04:31 05/09/2017 12:12:07 Neck pain 82351971 M54.2 Cervical radiculopathy 18271239 M54.12 [id number] Kathleen Vaca MD [facility] [place] [address] 7 07/13/2017 14:49:03 07/17/2017 09:23:50 Pain in cervical spine 948561107 M54.2 Headache 97350567 R51 Hyperlipidemia 93852339 E78.5 Vertigo 580740240 R42 Essential hypertension 00420311 I10 At low risk for fall 439 148556 Z91.81 [id number] Kathleen Vaca MD [place] [address] 7 12/12/2017 08:39:49 12/14/2017 09:08:33 Adult health examination 729350076 Z00.01 Screening mammography 24 794963 Z12.31 Essential hypertension 27857939 I10 Hyperlipidemia 12213138 E78.5 Osteopenia 171006952 M85 .80 [id number] Kathleen Vaca MD [address] [address] 7 01/08/2018 15:20:24 01/09/2018 15:26:05 Constipation 02882472 K59.00 [id number] Kathleen Vaca MD [address] [address] 7 05/14/2018 09:52:16 05/15/2018 08:18:04 Pain in cervical spine 328663450 M54.2 Vertigo 643782673 R42 Neck pain 92144207 M54.2 Hyperlipidemia 86864698 E78.5 Essential hypertension 18147054 I10 Body mass index 20-24 - normal 020591143 Z68.24 [id number] Kathleen Vaca MD [address] [address] 7 12/10/2018 10:51:12 12/11/2018 08:39:41 Acute sinusitis 73204339 J01.90 Cough 69774874 R05 [id number] Kathleen Vaca MD [facility] [address] [place] [address] 7 12/28/2018 08:44:32 01/01/2019 08:14:17 Adult health examination 373444726 Z00.01 Lower abdominal pain 545 51182 R10.30 Vertigo 574432800 R42 Essential hypertension 14003585 I10 Pain in ce rvical spine 296485288 M54.2 Hyperlipidemia 70678236 E78.5 Screening for malignant neoplasm of colon 459378444 Z12.11 Osteopenia 945908452 M85 .80 Body mass index 20-24 - normal 630012706 Z68.24 [id number] Kathleen Vaca MD [facility] [address] [address] 7 03/26/2019 11:19:06 03/27/2019 09:50:07 Sprain, flexor pollicis longus tendon 195714900 S66.011A [id number] Kathleen Vaca MD [facility] [address] [address] 7 07/02/2019 10:12:29 07/03/2019 08:56:07 Pain in cervical spine 980448194 M54.2 Essential hypertension 30420648 I10 Hyperlipidemia 51601037 E78.5 Osteopenia 976681333 M85 .80 Body mass index 25-29 - overweight 597164151 Z68.25 [id number] Kathleen Vaca MD [facility] [address] [place] [address] 7 08/01/2019 15:20:08 08/01/2019 16:40:31 Acute sinusitis 07354165 J01.90 [id number] Kathleen Vaca MD [facility] [address] [address] 7 01/16/2020 10:15:01 01/17/2020 08:04:28 Adult health examination 429632978 Z00.01 Essential hypertension 22010648 I10 Pain in ce rvical spine 474847846 M54.2 Hyperlipidemia 76456234 E78.5 Osteopenia 214371520 M85 .80 Body mass index 20-24 - normal 281779031 Z68.24 Depression screening 171 403473 Z13.89 Screening mammography 24 506292 Z12.31 Seasonal a llergic rhinitis 407180528 J30.2 [id number] Kathleen Vaca MD [facility] [address] [place] [address] 7 01/27/2020 11:32:10 01/28/2020 12:17:03 Gastroesophageal reflux disease 831389619 K21.9 Tendinitis of left wrist region 0384525332 6279696 M67.834 [id number] Kathleen Vaca MD [facility] [place] [address] 7 07/17/2020 09:59:11 2020 08:40:04 Hyperlipidemia 21992273 E78.5 Essential hypertension 11113684 I10 Allergic rhinitis 789014 04 J30.9 Body mass index 20-24 - normal 019449510 Z68.22 Pain in ce rvical spine 356075365 M54.2 [id number] Kathleen Vaca MD [facility] [address] [address] 7 12/14/2020 14:00:13 12/15/2020 08:28:53 Neck pain 77449910 M54.2 Acute low back pain 2788 29016 M54.5 [id number] Kathleen Vaca MD [facility] [address] [address] 7 01/21/2021 10:30:28 01/25/2021 09:37:49 Adult health examination 370269776 Z00.01 Essential hypertension 38468240 I10 Pain in ce rvical spine 651043458 M54.2 Hyperlipidemia 84080356 E78.5 Osteopenia 429476470 M85 .80 Body mass index 20-24 - normal 512198084 Z68.20 Depression screening 171 214729 Z13.89 Screening mammography 24 603785 Z12.31 Seasonal a llergic rhinitis 081838083 J30.2 [id number] Kathleen Vaca MD [facility] [address] [address] 7 07/27/2021 08:53:56 08/01/2021 13:54:13 Essential hypertension 81561934 I10 Hyperlipidemia 45306900 E78.5 Osteopenia 504757643 M85 .80 Body mass index 20-24 - normal 776018087 Z68.20 [id number] Kathleen Vaca MD [facility] [address] [place] [address] 7 09/21/2021 10:05:04 09/23/2021 09:00:00 Abdominal pain 86510724 R10.9 [id number] Kathleen Vaca MD [facility] [address] [place] [address] 7 01/24/2022 10:00:24 01/25/2022 16:35:10 Adult health examination 339127236 Z00.01 Essential hypertension 50996523 I10 Pain in ce rvical spine 134597832 M54.2 Hyperlipidemia 76691803 E78.5 Osteopenia 627426115 M85 .80 Body mass index 20-24 - normal 602109304 Z68.20 Depression screening 171 314838 Z13.89 Screening mammography 24 414925 Z12.31 Seasonal a llergic rhinitis 059602806 J30.2 Internal hemorrhoids 904 89665 K64.8 [id number] Kathleen Vaca MD [facility] [address] [address] 7 07/28/2022 09:02:02 08/02/2022 14:25:23 Essential hypertension 48770876 I10 Pain in ce rvical spine 815884526 M54.2 Hyperlipidemia 77048636 E78.5 Osteopenia 054709617 M85 .80 Body mass index 20-24 - normal 170337398 Z68.20 Depression screening 171 156901 Z13.89 Seasonal a llergic rhinitis 018354290 J30.2 Internal hemorrhoids 904 16506 K64.8 Gastroesop hageal reflux disease 086560388 K21.9 Active or passive immunization 933698261 Z23 Screening for cardiovascular system disease 444877810 Z13.6 Health Concerns Section Related Observation LastModified by Organization Detai ls LastModified Time None Recorded Concern Status LastModified by Organization Details LastModified Time None Recorded Advance Directives Directive Y: Payers Encounter Date Sequence Insurance Name Policy Number Policy Farris Covered Member ID Farris Member ID Guarantor Name 01/21/2021 1 [place] Nithya M Sully [id number] Nithya Sully 01/21/2021 2 [employer] (MEDICARE SUPPLEMENT) Nithya Sully [id number] Nithya Kingsley 07/27/2021 1 [place] Nithya M Sully [id number] Nithya Sully 07/27/2021 2 [employer] (MEDICARE SUPPLEMENT) Nithya Sully [id number] Nithya Sully 09/21/2021 1 [place] Nithya M Sully [id number] Nithya Sully 09/21/2021 2 [employer] (MEDICARE SUPPLEMENT) Nithya Kingsley [id number] Nithya Sully 01/24/2022 1 [place] Nithya M Sully [id number] Nithya Sully 01/24/2022 2 [employer] (MEDICARE SUPPLEMENT) Nithya Kingsley [id number] Nithya Sully 07/28/2022 1 [place] Nithya M Sully [id number] Nithya Sully 07/28/2022 2 [employer] (MEDICARE SUPPLEMENT) Nithya Sully [id number] Nithya Sully Notes Date Note Type Note Provider Name and Address Organization Details Recorded Time 09/21/2021 text/html has been having upper and middle abdominal pains for a couple of months but getting worse. She felt terrible cassy. She has never vomited but has loose soft bowels and no obvious blood or melena Her stomach just rumbles and is tender in the center. It is worse after eating as gas increases. The pain does not go into the back but does go into the right upper abdomen. She cannot pinpoint any particular food. Mylanta has helped some.she recently went to Dr Harris in July and had an MRI and had an epidural steroid injection. The rt leg pain has resolved since that injection. Kathleen Vaca MD [address] [facility] [address], [place], [address], [facility] 09/22/2021 08:53:59 01/24/2022 text/html had covid last month and was quite ill and doing better now with a little residual cough. Kathleen Vaca MD [address] [facility], [place], [address], [facility] 01/25/2022 00:15:16 OBGyn Episode No OBEpisode recorded.
--- OUTSIDE RECORDS SUMMARY | 2025-01-08 11:39 | XMS_ITS | Clinical Summary ---
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 10/05/2024 Active lisinopriL (ZESTRIL) 10 MG tablet Take 1 tablet (10 mg total) by mouth daily. 08/24/2024 Active meloxicam (MOBIC) 15 MG tablet Take 1 tablet (15 mg total) by mouth daily. 10/07/2024 Active omeprazole (PriLOSEC) 20 MG capsule Take 1 capsule (20 mg total) by mouth 2 (two) times daily. 08/24/2024 Active pravastatin (PRAVACHOL) 10 MG tablet Take 1 tablet (10 mg total) by mouth nightly. 08/24/2024 Active calcium carbonate-vitam in D3 (calcium-vitami n D) 1,250 mg (500 mg) - 200 unit per tablet Take 1 tablet by mouth 2 (two) times daily. Active ferrous gluconate (FERGON) 324 MG tablet Take 1 tablet (324 mg total) by mouth daily with breakfast. Active cetirizine (ZyrTEC) 5 MG chewable tablet Acti ve aspirin 81 MG EC tablet Take 1 tablet (81 mg total) by mouth once a week at bedtime. Active Active Problems Problem Noted Date Diagnosed Date HTN (hypertension) 11/14/2024 Gastroesophageal reflux disease 11/14/2024 Encounters Date Type Department Care Team Description 11/14/2024 9:26 AM EDT - 11/14/2024 9:55 AM EDT Surgery [facility] Operating Room [address] [place] [phone] Roslyn Stone MD [facility] 22.00 11/14/2024 8:48 AM EDT Anesthesia Event [facility] Operating Room [address] [place] [phone] Rebeca Mera CRNA Walters, Stephen L, DO 11/14/2024 7:17 AM EDT - 11/14/2024 9:11 AM EDT Hospital Encounter [facility] Room [address] [place] [phone] Roslyn Stone MD Discharge Disposition: Home or Self Care 11/06/2024 Travel from Last 3 Months Social History Tobacco Use Types Packs/Day Years [...] on file Sexual Orientation Not on file Last Filed Vital Signs Vital Sign Reading [...] Mass Index 18.56 11/14/2024 7:57 AM EDT Plan of Treatment Health Maintenance Due Date Last Done Comments DXA SCAN 1940 Depression Screening (12+) 1952 Shingles Vaccine (Zoster) (1 of 2) 1990 Medicare Initial AWV [id number] 07/01/2006 Respiratory Syncytial Virus (RSV) Adult or (1 - 1-dose 75+ series) 2015 DTAP/TDAP/TD VACCINES (2 - T d or Tdap) 11/29/2023 11/28/2013 COVID-19 VACCINE (4 - 2023-2 5 season) 2024 06/03/2021, 10/22/2020, 09/24/2020 Falls Risk Screening 07/31/2024 Influenza Vaccine (Season Ended) 2025 04/12/2022, 04/08/2021, 05/01/2020 Tobacco Cessation Counseling and Screening (12+) 11/14/2025 11/14/2024 Pneumococcal 50+ years Completed , 12/06/2016, 04/17/2015, Additional history exists Medical Devices Implanted Type Area [employer]ber [employer] Worker Device Identifier Shelf Expiration Date Model / Serial / Lot Iol Uv Clareon +22.0 [id number] - [id number] Implanted:Qty: 1 on 11/14/2024 by Roslyn Stone MD at [facility] IMPLANTS Left: Eye ZEYAD LAB:SURG 07/19/2027 [id number] / [id number] / Procedures Procedure Name Priority Date/Time Associated Diagnosis Comments CO XCAPSL CTRC RMVL INSJ IO LENS PROSTH W/O ECP 11/14/2024 8:48 AM EDT Combined forms of age-related cataract of left eye Case Notes 0730 from Last 3 Months Insurance MEDICARE PART A B GENERIC COMMERCIAL Care Teams Game And Fish Protector Relationship Specialty Start Date End Date Ronald Ghotra MD [address] [place] [id number] PCP - General Family Medicine 11/06/24
--- OUTSIDE RECORDS SUMMARY | 2025-01-08 11:40 | XMS_ITS | Referral Summary ---
Author Organization [employer] [facility] Address [address] [place] [place] [address] Care Team Providers Care Business And Marketing Teacher Name Role Phone Ronald Ghotra MD Primary Care Provider [phone]- [phone] Encounters Date Type Department Care Team Description 11/14/2024 8:48 AM EDT Anesthesia Event [facility] Operating Room [address] [place] [phone] Rebeca Mera CRNA Walters, Stephen L, DO 11/14/2024 9:26 AM EDT - 11/14/2024 9:55 AM EDT Surgery [facility] Operating Room [address] [place] [phone] Roslyn Stone MD [facility] 22.00 11/14/2024 7:17 AM EDT - 11/14/2024 9:11 AM EDT Hospital Encounter [facility] Operating Room [address] [place] [phone] Roslyn Stone MD Discharge Disposition: Home or Self Care 11/06/2024 Travel from Last 3 Months Allergies Active Allergy Reactions Criticality Noted Date [...] HTN (hypertension) 11/14/2024 Gastroesophageal reflux disease 11/14/2024 Social History Tobacco Use Types Packs/Day Years [...] 11/14/2024 7:57 AM EDT Plan of Treatment Not on file Medical Devices Implanted Type Area [employer] Advisor Device Identifier Shelf Expiration Date Model / Serial / Lot Iol Uv Trista +22.0 [id number] - [id number] Implanted:Qty: 1 on 11/14/2024 by Roslyn Stone MD at [facility] IMPLANTS Left: Eye ZEYAD LAB:SURG 07/19/2027 [id number] / [id number] / Procedures Procedure Name Priority Date/Time Associated Diagnosis Comments MD XCAPSL CTRC RMVL INSJ IO LENS PROSTH W/O ECP 11/14/2024 8:48 AM EDT Combined forms of age-related cataract of left eye Case Notes 0730 from Last 3 Months Insurance MEDICARE PART A B morphCARD Care Teams Business And Marketing Teacher Relationship Specialty Start Date End Date Ronald Ghotra MD [address] [place] [id number] PCP - General Family Medicine 11/06/24
== END 2025-01-07 23:59 | disposition home or self-care (01) ==
LOC: LAB.DROPOF 01-08 11:34
PROVIDERS: PCP Family Medicine; Visit Provider Family Medicine
DX: D64.9 Anemia, unspecified (principal); E78.5 Hyperlipidemia, unspecified; I10 Essential (primary) hypertension; Z11.59 Encounter for screening for other viral diseases
CPT/HCPCS: 80053; 80061; 82728; 83540; 83550; 84443; 85025; 87340

== ENCOUNTER 2025-07-03 07:49 | Day surgery (SDC) | payer MEDICARE, OTHER, SELFPAY ==
--- NOTE | 2025-07-03 06:52 | EXP.HP ---
History of Present Illness *Admission Date: 07/03/25 *History of present illness: Mrs. Wynn is an 84-year-old female who is here for diagnostic EGD. She does have a history of dysphagia and some dyspepsia. The patient did have an endoscopy scheduled just prior to but she canceled this because of some underlying fear of anesthesia. The patient does state that her sister under anesthesia couple of years ago and this played a role. The patient states that she has had dysphagia to solid foods such as breads and meats in the lower retrosternal region. She is able to drink water and this often passes. She also reports the need to belch but cannot. Belching helps to relieve her symptoms. She has had moderate weight loss of nearly 40 pounds in the last couple of years. She does report some postprandial bloating and intermittent early satiety. She also reports moderate epigastric discomfort which can sometimes be severe. She gets intermittent heartburn. She has had some chronic constipation and takes MiraLAX when necessary but not regularly. She states that the MiraLAX will lead to looser bowel movements. The patient did have a colonoscopy in 2022 (Tammie Acosta MD) and had 1 small benign polyp and internal hemorrhoids. The examination is deemed medically necessary for diagnostic EGD. The patient has been seen, interviewed and examined prior to the procedure by both myself and the anesthesia provider. [facility] Disclaimer: The information contained in this section may have been updated after the patient was seen, as this information can be updated by other users. 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 Skin lesion of face Laceration of right ear canal Rectocele Allergies Spinal stenosis Hyperlipidemia Hypertension Surgical History Polyp, stomach History of hysterectomy History of bladder surgery History of appendectomy Hx of cataract surgery Previous back surgery Family History Father Coronary artery disease Heart attack Social History Smoking Status: Never smoker alcohol intake: never substance use type: denies use current occupational status: retired Travel in the last 8 weeks?: None household members: spouse housing: house marital status: Have you lived/traveled outside US in past 30 days?: No Contact w/someone who lives/traveled outside US past 30 days?: No Exposure to someone with infectious disease in past 14 days?: No Do you have a fever (greater than 100.4 F or 38 C)?: No Have you tested positive for COVID-19?: No Exposed to someone with COVID-19 in past 14 days?: No Do you have a sore throat?: No Do you have a cough?: No Do you have any weakness?: No Do you have any diarrhea?: No Are you experiencing any unusual bleeding?: No Do you have any muscle aches/pain?: No Do you have any abdominal pain?: No Are you experiencing loss of taste or smell?: No Other Medical History Have you received the Flu Vaccine for this season: No Have you received the Pneumonia Vaccine: Yes Review of Systems Review of Systems Review of systems (narrative): Negative *Cardiovascular Comments: Negative *Gastrointestinal Comments: Negative *Genitourinary Comments: Negative *Musculoskeletal Comments: Negative *Neurologic Comments: Negative Meds Home Medications and Allergies Home Medications ?Medication ?Instructions ?Recorded ?Confirmed ?Type aspirin 81 mg tablet,delayed 81 mg PO WEEKLY 11/16/22 07/03/25 History release pravastatin 10 mg tablet 10 mg PO DAILY #90 tabs 08/14/24 07/03/25 Rx lisinopril 10 mg tablet See Rx Instructions .Route 04/01/25 07/03/25 Rx .COMPLEX #90 tabs omeprazole 20 mg capsule,delayed See Rx Instructions .Route 04/01/25 07/03/25 Rx release .COMPLEX #180 caps fluticasone propionate 50 2 spray intranasal DAILY #16 grams 04/07/25 07/03/25 Rx mcg/actuation nasal spray,suspension gabapentin 300 mg capsule 300 mg PO BID #180 caps 06/23/25 07/03/25 Rx calcium 600 mg (as 1 cap PO BID 07/02/25 07/03/25 History carbonate)-vitamin D3 10 mcg (400 unit) capsule cetirizine 10 mg tablet 10 mg PO DAILY 07/02/25 07/03/25 History New Prescriptions to Start Prescriptions: Allergies Allergy/AdvReac Type Severity Reaction Status Date / Time clarithromycin (From Biaxin) Allergy Mild TONGUE Verified 07/02/25 10:58 FEELS STRANGE penicillin V Allergy Rash Verified 07/02/25 10:58 Penicillins Allergy Rash Verified 07/02/25 10:58 Exam *Routine HEENT Exam Head: Present normocephalic Eye: Present EOMI and PERRL ENT: Present mucous membranes moist *Routine Neck Exam Neck: Present supple *Routine Respiratory Exam Respiratory: Present CTA bilaterally *Routine Cardiovascular Exam Cardiovascular: Present RRR *Routine Abdominal Exam Abdominal: Present soft and normoactive bowel sounds; Absent tenderness *Routine Rectal Exam Rectal:: deferred *Routine Genitalia Exam Genitalia:: deferred *Routine Extremities Exam Extremities: Absent cyanosis, clubbing or edema *Routine Skin Exam Skin: Present warm; Absent rash *Routine Neurological Exam Neurological: Present alert and oriented X3 Assessment and Plan *Assessment and plan (1) Dyspepsia: Status: Acute Category: Medical Code(s): R10.13 - Epigastric pain (2) Epigastric pain: Status: Acute Category: Medical Code(s): R10.13 - Epigastric pain (3) Dysphagia: Status: Acute Category: Medical Code(s): R13.10 - Dysphagia, unspecified Plan A/P: 1. Dyspepsia/epigastric pain and dysphagia is the preprocedural diagnosis. The patient will be anesthetized/sedated using MAC sedation. The patient has been seen and examined. Cardiac and lung assessment prior to the examination is stable. Proceed with planned diagnostic EGD.
--- NOTE | 2025-07-03 06:53 | P.PCN_ITS ---
[facility] Procedure Note Date: 07/03/25 Time: 10:03 Procedure Note:: Upper Endoscopy Procedure Report: Esophagogastroduodenoscopy with cold biopsies and TTS balloon dilation Endoscopost: Heri Gavin II, MD Referring Physician: Ronald Ghotra MD Date of Procedure: July 03, 2025 Equipment: Olympus GIF-1100 standard upper endoscope Sedation: MAC sedation Indications: Mrs. Wynn is an 84-year-old female who is here for diagnostic EGD. She does have a history of dysphagia and some dyspepsia. The patient did have an endoscopy scheduled just prior to but she canceled this because of some underlying fear of anesthesia. The patient does state that her sister under anesthesia couple of years ago and this played a role. The patient states that she has had dysphagia to solid foods such as breads and meats in the lower retrosternal region. She is able to drink water and this often passes. She also reports the need to belch but cannot. Belching helps to relieve her symptoms. She has had moderate weight loss of nearly 40 pounds in the last couple of years. She does report some postprandial bloating and intermittent early satiety. She also reports moderate epigastric discomfort which can sometimes be severe. She gets intermittent heartburn. She has had some chronic constipation and takes MiraLAX when necessary but not regularly. She states that the MiraLAX will lead to looser bowel movements. The patient did have a colonoscopy in 2022 (Tammie Acosta MD) and had 1 small benign polyp and internal hemorrhoids. The examination is deemed medically necessary for diagnostic EGD. Procedure: Prior to the procedure, a history and physical exam was performed, and patient's medications and allergies were reviewed. The risks, benefits and alternatives of the sedation and procedure were discussed with the patient. All questions were answered and informed consent was obtained. The patient was brought to the procedure room. Patient identification and proposed procedure were verified by the physician and the nurse. The patient was placed in a left lateral decubitus position and the scope was passed under direct vision. Throughout the procedure, the patient's blood pressure, pulse, and oxygen saturations were monitored continuously. The upper GI endoscopy was accomplished without difficulty. The patient tolerated the procedure well. Findings: The scope was passed directly into the upper esophagus and advanced to the third portion of the duodenum. The post bulbar duodenum, ampulla and duodenal bulb were normal with normal mucosa and conniventes. 2 cold biopsies were taken from the second portion of the duodenum for the disaccharidase assay. The scope was withdrawn through a normal duodenal bulb and pylorus into the stomach. There was some bile reflux with mild linear reactive gastropathy of the antrum. 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 The body and fundus of the stomach had moderate atrophy and NBI was utilized and there was complete gastric intestinal metaplasia of the body and fundus of the stomach consistent with chronic atrophic gastritis. Several biopsies were obtained from the proximal stomach. Upon retroflexion there was a very small sliding 1 to 2 cm hiatal hernia. The scope was then withdrawn into the esophagus. 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 NBI was utilized. There was no evidence of reflux esophagitis. There were tertiary contractions and evidence of mild esophageal dysmotility. The entire esophagus was dilated to 60 Citizen Of [place]/20 mm and there was mild resistance at the cricopharyngeus. The remainder of the esophageal mucosa was normal. Impression: 1. 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 Nonerosive GERD with mild esophageal dysmotility, cricopharyngeal spasm and small sliding 1 to 2 cm hiatal hernia status post dilation to 20 mm 3. 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 Bile reflux with linear reactive gastropathy of antrum Plan: I will follow-up the biopsies and disaccharidase assay. If there is dysplasia on Aguilera's biopsies, she will need EMR. I will check biopsies for H. pylori and antiparietal cell antibodies. I will discuss the findings with the patient and family.
[2025-07-03 08:10] VITALS: BMI 19.0
[2025-07-03 08:12] VITALS: BP 166/73; PULSE 67; RESP 16; TEMP 36.2; O2SAT 99
[2025-07-03] MEDS: LACTATED RINGERS 1000ML 1,000 ML 50 ML IV (08:19)
--- NOTE | 2025-07-03 08:48 | EXP.ANES.CKL ---
[facility] Disclaimer: The information contained in this section may have been updated after the patient was seen, as this information can be updated by other users. 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 Skin lesion of face Laceration of right ear canal Rectocele Allergies Spinal stenosis Hyperlipidemia Hypertension Surgical History Polyp, stomach History of hysterectomy History of bladder surgery History of appendectomy Hx of cataract surgery Previous back surgery Family History Father Coronary artery disease Heart attack Social History Smoking Status: Never smoker alcohol intake: never substance use type: denies use current occupational status: retired Travel in the last 8 weeks?: None household members: spouse housing: house marital status: Have you lived/traveled outside [place] in past 30 days?: No Contact w/someone who lives/traveled outside [place] past 30 days?: No Exposure to someone with infectious disease in past 14 days?: No Do you have a fever (greater than 100.4 F or 38 C)?: No Have you tested positive for COVID-19?: No Exposed to someone with COVID-19 in past 14 days?: No Do you have a sore throat?: No Do you have a cough?: No Do you have any weakness?: No Do you have any diarrhea?: No Are you experiencing any unusual bleeding?: No Do you have any muscle aches/pain?: No Do you have any abdominal pain?: No Are you experiencing loss of taste or smell?: No [facility] Anesthesia Checklist Patient Identification Patient Identification: Arm Band and Verbal (Name & ) Structural Data Admitted From: Home Planned Operative Procedure/s: EGD Consent for Planned Operative Procedure(s) Verified: Yes Verified Documents: Surgical Consent NPO Status Verified Time NPO: 00:00 Additional verifications Anesthesia Reactions: No Airway Assessment Mallampati Score:: Class II C-Spine Mobility Assessed: Yes TMJ Mobility Assessed: Yes Dentition: Good Dentition Neurological Assessment Level of Consciousness: Awake, Alert and Appropriate Hx Seizures: No Numbness or tingling in extremities: No Anesthesia Plan Anesthesia Risk discussed: Yes Anesthesia Plan: Verified ASA Class: II Anesthesia Type: MAC
[2025-07-03 10:06] VITALS: BP 120/65; PULSE 72; RESP 16; TEMP 36.6; O2SAT 92
[2025-07-03 10:16] VITALS: BP 118/51; PULSE 76; RESP 16; TEMP 36.6; O2SAT 93
[2025-07-03 10:26] VITALS: BP 127/49; PULSE 68; RESP 18; TEMP 36.6; O2SAT 96
[2025-07-03 10:36] VITALS: BP 122/64; PULSE 65; RESP 18; TEMP 36.6; O2SAT 95
[2025-07-07 19:10] LABS: Interpretation Notes (.); Lactase 23.93 (>/= 14.0); Maltase 195.87 (>/= 110.0); Palatinase 15.46 (>/= 8.5); Reference Notes (.); Sucrase 56.69 (>/= 25.0)
== END 2025-07-03 11:00 | disposition home or self-care (01) ==
PROVIDERS: PCP Family Medicine; Visit Provider Internal Medicine Gastroenterology
PROC: 0DJ08ZZ Inspection of Upper Intestinal Tract, Via Natural or Artificial Opening Endoscopic (ICD-10-PCS; CPT 43239; principal; 2025-07-03 13:30)
DX: R13.10 Dysphagia, unspecified (principal); K29.50 Unspecified chronic gastritis without bleeding; K22.70 Barrett's esophagus without dysplasia; K21.9 Gastro-esophageal reflux disease without esophagitis; K22.4 Dyskinesia of esophagus; J39.2 Other diseases of pharynx; K31.89 Other diseases of stomach and duodenum; K44.9 Diaphragmatic hernia without obstruction or gangrene; I10 Essential (primary) hypertension; E78.5 Hyperlipidemia, unspecified; K59.09 Other constipation; Z88.0 Allergy status to penicillin; Z88.1 Allergy status to other antibiotic agents; Z79.82 Long term (current) use of aspirin; Z79.899 Other long term (current) drug therapy
CPT/HCPCS: 43239; 43249; 36415; 82657; 83516; 88305; 88313; 88342; C1726; J2003; J2704; J7120